=== PATIENT | male | born 1980 | race African-American/Black ===

== ENCOUNTER 2018-06-12 16:23 | Emergency (ER) | payer SELFPAY ==
[~2018-06-12] VITALS: Ht 175.3 cm; Wt 70.3 kg
[~2018-06-12 16:23] MED LIST: ACHD5005 PO; ALBU0.632 IH; ALBU8.5H2 IH; BUDE6HFA IH; LVF500T GT; PRD20T PO
--- OUTSIDE RECORDS SUMMARY | 2018-06-12 16:27 | XMS REPORT | Continuity of Care Document ---
Author Author [facility] Organization [facility] Address Unknown Phone Unavailable Allergies Active Description Code Type Severity Reaction Onset Reported/Identified Relationship to Patient Clinical Status Yes Penicillins [id number] Drug Allergy Unknown N/A 03/23/2015 Medications There is no data. Problems Date Dx Coded Attending Type Code Diagnosis Diagnosed By 03/25/2015 NIYAH JUNG MD Ot 305.1 TOBACCO USE DISORDER 03/25/2015 NIYAH JUNG MD Ot 590.80 PYELONEPHRITIS NOS 02/28/2016 SOLEDAD WILEY APRN Ot F17.210 NICOTINE DEPENDENCE, CIGARETTES, UNCOMPL 02/28/2016 SOLEDAD WILEY APRN Ot R07.0 PAIN IN THROAT 03/01/2016 SOLEDAD WILEY APRN Ot R07.0 PAIN IN THROAT 03/01/2016 SOLEDAD WILEY APRN Ot F17.210 NICOTINE DEPENDENCE, CIGARETTES, UNCOMPL 03/01/2016 SOLEDAD WILEY APRN Ot R07.0 PAIN IN THROAT 03/04/2016 SOLEDAD WILEY APRN Ot F17.210 NICOTINE DEPENDENCE, CIGARETTES, UNCOMPL 03/04/2016 SOLEDAD WILEY APRN Ot R07.0 PAIN IN THROAT Procedures There is no data. Results There is no data. Encounters ACCT No. Visit Date/Time Discharge Status Pt. Type Provider Facility Loc./Unit Complaint [id number] 02/27/2016 21:16:00 02/28/2016 00:40:00 DIS Outpatient SOLEDAD WILEY APRN [facility] ER [id number] 03/24/2015 00:08:00 03/25/2015 07:50:00 DIS Inpatient NIYAH JUNG MD [facility] SURGICAL
--- OUTSIDE RECORDS SUMMARY | 2018-06-12 16:27 | XMS REPORT ---
Author CHARLEY Maya Organization [employer] Address Unknown Phone Unavailable Care Team Providers Care Pack Worker Supervisor Name Role Phone CHARLEY PUENTE CP Unavailable Allergies No Known Allergies Problems Problem Type Condition ICD-9 Code Onset Dates Condition Status Problem Pyelonephritis 590.80 Active Assessment History of pyelonephritis V13.02 Active Problem Lumbago 724.2 Active Assessment Dysuria 788.1 Active Medications No Known Medications Procedures Procedure Coding System Code Date Office Visit, Est Pt., Level 2 CPT-4 08142 Jun 03, 2015 URINALYSIS, AUTO, W/O SCOPE CPT-4 42549 Jun 03, 2015 Results Name Result Date Reference Range Unit Abnormality Flag UA LONG DIP (IN HOUSE) Summary Purpose [employer] Submission
[2018-06-12] MEDS ORDERED: HYDROcodone/APAP 5 MG/325 MG (LORTAB) TAB PO ONE (17:00)
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
--- NOTE | 2018-06-12 17:59 | Diagnostic Imaging Report ---
INDICATION: Pain status post injury. COMPARISON: None. FINDINGS: Four views of the right knee joint demonstrate no acute fracture or dislocation. No focal osseous lesions are seen. There is moderate surrounding soft tissue swelling, particularly within the suprapatellar region. Underlying suprapatellar joint effusion cannot be excluded. There are no radiopaque foreign bodies. IMPRESSION: 1. Soft tissue swelling and possible suprapatellar joint effusion, but otherwise no radiographic evidence of acute fracture or dislocation of the right knee. If pain and clinical concern persist, cross-sectional imaging such as CT or MRI is recommended. Dictated by: Dictated on workstation # [id number]
[2018-06-12 18:55] VITALS: BP 126/82
== END 2018-06-12 18:58 | disposition home or self-care (01) ==
LOC: EDUNIT# 16:23 → ER 16:24
DX: S80.01XA Contusion of right knee, initial encounter (principal); J45.909 Unspecified asthma, uncomplicated; Z88.0 Allergy status to penicillin; W22.09XA Striking against other stationary object, initial encounter
CPT/HCPCS: 73562

== ENCOUNTER 2019-01-16 11:25 | Emergency (ER) | payer SELFPAY ==
[~2019-01-16] VITALS: Ht 175.3 cm; Wt 70.3 kg
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
[2019-01-16] MEDS ORDERED: TETANUS,DIPTH,PERTUSS P/F (BOOSTRIX) 0.5 ML VIAL IM ONE (12:00)
--- NOTE | 2019-01-16 12:17 | Diagnostic Imaging Report ---
INDICATION: Injury to right hand AP, oblique, and lateral views the right hand are obtained. There is a comminuted fracture of the distal aspect of fifth metacarpal with slight volar regulation of the distal fragment. Remaining bony structures are intact. There is no dislocation. IMPRESSION: Acute fifth metacarpal fracture as described above. Dictated by: Dictated on workstation # [id number]
[2019-01-16] MEDS ORDERED: ACETAMINOPHEN 325 MG TABLET PO ONE (12:30)
[2019-01-16 12:40] VITALS: BP 149/96
== END 2019-01-16 12:40 | disposition home or self-care (01) ==
LOC: EDUNIT# 11:25 → ER 11:26
DX: S62.346A Nondisplaced fracture of base of fifth metacarpal bone, right hand, initial encounter for closed fracture (principal); J45.909 Unspecified asthma, uncomplicated; F12.10 Cannabis abuse, uncomplicated; F17.210 Nicotine dependence, cigarettes, uncomplicated; Z23 Encounter for immunization; Z88.0 Allergy status to penicillin; Z90.89 Acquired absence of other organs; W22.09XA Striking against other stationary object, initial encounter
CPT/HCPCS: 73130; 90471; 90715

== ENCOUNTER 2021-08-04 12:35 | Emergency (ER) | payer SELFPAY ==
[~2021-08-04] VITALS: Ht 175.3 cm; Wt 70.0 kg
[2021-08-04 13:40] LABS: BILIRUBIN,URINE NEGATIVE (NEGATIVE); CLARITY,URINE CLEAR; COLOR,URINE YELLOW; GLUCOSE, URINE (UA) NEGATIVE (NEGATIVE); KETONES,URINE NEGATIVE (NEGATIVE); LEUKOCYTE ESTERASE ,URINE NEGATIVE (NEGATIVE); NITRITE,URINE NEGATIVE (NEGATIVE); PROTEIN,URINE NEGATIVE (NEGATIVE)
[2021-08-04 13:48] LABS: BACTERIA,URINE NEGATIVE /HPF; SQUAMOUS EPITHELIAL CELL,UR RARE /HPF; WBC,URINE RARE /HPF
--- NOTE | 2021-08-04 14:48 | Diagnostic Imaging Report ---
PROCEDURE: US Scrotum. TECHNIQUE: Multiple Real-time grayscale images were obtained over the scrotum in various projections bilaterally. INDICATION: Scrotal pain and swelling. FINDINGS: The right testicle measures 3.0 x 2.0 x 2.3 cm and the left testicle measures 3.7 x 2.2 x 2.0 cm. No discrete testicular mass is seen. There are very large hydroceles present, largest on the left and moderate on the right. No varicocele is seen. The epididymides could not be visualized. There does appear to be blood flow to both testes. IMPRESSION: 1. No evidence of testicular mass or vascular compromise. 2. Bilateral hydroceles, largest on the left. Dictated by: Dictated on workstation # [id number]
--- NOTE | 2021-08-04 15:08 | ED GU-Male ---
General Chief Complaint: - Reproductive Stated Complaint: SWOLLEN TESTICLES Nursing Triage Note: PT AMB TO RM 3 W REPORTS OF LEFT TESTICLE SWOLLEN FOR APPROX 3 WEEKS AND PAINFUL SX THIS AM. PT APPEARS TO WALK AND SIT W PAIN. A&OX4. Source: patient Exam Limitations: no limitations History of Present Illness Date Seen by Provider: Aug 04, 2021 Time Seen by Provider: 13:04 Initial Comments This 40-year-old gentleman presents to the emergency room with complaints of progressively worsening swelling of the scrotum over the last 3 weeks. He states his scrotum has always been larger but it has doubled in size over the last 3 weeks. This morning he was developing fairly intense pain. He denies any significant dysuria or penile discharge. He is sexually active. No fever. Allergies and Home Medications Allergies Coded Allergies: Penicillins (Unverified Allergy, Unknown, 03/23/15) Patient Home Medication List Home Medication List Reviewed: Yes Doxycycline Hyclate (Doxycycline Hyclate) 100 Mg Tablet, 100 MG PO BID Prescribed by: IBRAHIMA HERNÁNDEZ on 08/04/21 1517 Review of Systems Review of Systems Constitutional: no symptoms reported EENTM: no symptoms reported Respiratory: no symptoms reported Cardiovascular: no symptoms reported Gastrointestinal: no symptoms reported Genitourinary: see HPI Musculoskeletal: no symptoms reported Skin: no symptoms reported Psychiatric/Neurological: No Symptoms Reported Endocrine: No Symptoms Reported Past Wseguna-Qquexp-Uqcxxc Hx Patient Social History Tobacco Use?: Yes Tobacco type used: Cigarettes Smoking Status: Current Everyday Smoker Use of E-Cig and/or Vaping dev: No Substance use?: Yes Substance type: Marijuana, Other Additional substance use comme: THC AND COCAINE USE Alcohol Use?: Yes Pt feels they are or have been: No Immunizations Up To Date Tetanus Booster (TDap): Less than 5yrs PED Vaccines UTD: No Influenza Vaccine Up-to-Date: No; Not Current Seasonal Allergies Seasonal Allergies: No Past Medical History Surgeries: Yes (HEMOROIDECTOMY) Respiratory: Yes Asthma Cardiac: No Neurological: No Reproductive Disorders: No Sexually Transmitted Disease: No Gastrointestinal: No Musculoskeletal: Yes Chronic Back Pain Endocrine: No Cancer: No Psychosocial: No Integumentary: No Blood Disorders: No Adverse Reaction/Blood Tranf: No Family Medical History No Pertinent Family Hx Physical Exam Vital Signs Vital Signs - First Documented 08/04/21 13:30 Temp 36.1 Pulse 78 Resp 20 B/P (MAP) 130/85 (100) Pulse Ox 100 O2 Delivery Room Air Capillary Refill : Less Than 3 Seconds Height, Weight, BMI Height: 5'9.00" Weight: 155lbs. oz. 70.867023qu; 22.00 BMI Method:Stated General Appearance: WD/WN, mild distress HEENT: normal ENT inspection Neck: normal inspection Respiratory: no respiratory distress, no accessory muscle use Gastrointestinal: normal bowel sounds, non tender, soft; No distended Male: other (Penis is normal with no discharge or skin changes. Scrotum is markedly swollen without any erythema or inflammatory changes. There is mild to moderate generalized tenderness. Testicles cannot be palpated due to the swelling. Inguinal canals are moderately tender without evidence of hernia, left greater than right) Extremities: normal inspection, no pedal edema Neurologic/Psychiatric: consulting practice director II-XII nml as tested, no motor/sensory deficits, alert, normal mood/affect, oriented x 3 Skin: normal color, warm/dry Progress/Results/Core Measures Suspected Sepsis SIRS Temperature: Pulse: 78 Respiratory Rate: 20 Blood Pressure 130 /85 Mean: 100 Results/Orders Lab Results Laboratory Tests Test 08/04/21 13:32 Range/Units Urine Color YELLOW Urine Clarity CLEAR Urine pH 6.0 5-9 Urine Specific [place] 1.025 H 1.016-1.022 Urine Protein NEGATIVE NEGATIVE Urine Glucose (UA) NEGATIVE NEGATIVE Urine Ketones NEGATIVE NEGATIVE Urine Nitrite NEGATIVE NEGATIVE Urine Bilirubin NEGATIVE NEGATIVE Urine Urobilinogen 1.0 < = 1.0 MG/DL Urine Leukocyte Esterase NEGATIVE NEGATIVE Urine RBC (Auto) NEGATIVE NEGATIVE Urine RBC NONE /HPF Urine WBC RARE /HPF Urine Squamous Epithelial Cells RARE /HPF Urine Crystals NONE /LPF Urine Bacteria NEGATIVE /HPF Urine Casts NONE /LPF Urine Mucus SMALL H /LPF Urine Culture Indicated NO My Orders Orders - IBRAHIMA ACOSTA MD Ua Culture If Indicated (08/04/21 13:04) Us Scrotum (Testicle) [id number] (08/04/21 13:47) Chlamydia Trachomatis Urine (08/04/21 15:09) Neis Geoff Dna Urine Test (08/04/21 15:09) Vital Signs/I&O 08/04/21 08/04/21 13:30 15:22 Temp 36.1 Pulse 78 73 Resp 20 20 B/P (MAP) 130/85 (100) 140/88 Pulse Ox 100 99 O2 Delivery Room Air Room Air Capillary Refill : Less Than 3 Seconds Blood Pressure Mean: 100 Progress Note : Progress Note Patient declined pain medication. Ultrasound revealed no torsion, masses, or inflammatory processes. Presence of hydrocele discussed with Dr. Wu. Outpatient referral and empiric antibiotic therapy were recommended. Doxycycline was prescribed. See discharge instructions. Diagnostic Imaging Diagonstic Imaging: Ultrasound Plain Films/CT/US/NM/MRI: other (Scrotum) Comments Ultrasound discussed with heat treatment technician and report reviewed. See report below: NAME: PHIL CARRILLO [facility] REC#: [id number] PT STATUS: REG ER : 1980 PHYSICIAN: IBRAHIMA ACOSTA MD ADMIT DATE: 08/04/21/ER Draft Date of Exam:08/04/21 US SCROTUM (Testicle) [id number] PROCEDURE: US Scrotum. TECHNIQUE: Multiple Real-time grayscale images were obtained over the scrotum in various projections bilaterally. INDICATION: Scrotal pain and swelling. FINDINGS: The right testicle measures 3.0 x 2.0 x 2.3 cm and the left testicle measures 3.7 x 2.2 x 2.0 cm. No discrete testicular mass is seen. There are very large hydroceles present, largest on the left and moderate on the right. No varicocele is seen. The epididymides could not be visualized. There does appear to be blood flow to both testes. IMPRESSION: 1. No evidence of testicular mass or vascular compromise. 2. Bilateral hydroceles, largest on the left. Dictated on workstation # [id number] Dict: 08/04/21 1443 Trans: 08/04/21 1448 [id number] Interpreted by: GABY BISHOP MD Departure Impression Primary Impression: Bilateral hydrocele Additional Impression: Scrotal pain Disposition: 01 HOME, SELF-CARE Condition: Stable Departure-Patient Inst. Decision time for Depature: 15:11 Referrals: NO,LOCAL PHYSICIAN (PCP) Primary Care Physician MOMO WU MD Patient Instructions: Hydrocele/Varicocele (DC) Add. Discharge Instructions: You may take ibuprofen up to 600 mg every 6 hours and/or Tylenol (acetaminophen) up to 1000 mg every 6 hours as needed for pain. Wear supportive underwear. Contact Dr. Wu and schedule a follow-up appointment. Since you are uncertain of your insurance status at this time, you should complete the patient financial coordinator paperwork with the hospital. Papers can be picked up from the registration desk. Complete your antibiotic as prescribed. Return to care if you have worsening symptoms. Call with questions or concerns. All discharge instructions reviewed with patient and/or family. Voiced understanding. Scripts Doxycycline Hyclate (Doxycycline Hyclate) 100 Mg Tablet 100 MG PO BID, #20 TAB 0 Refills Prov: IBRAHIMA ACOSTA MD 08/04/21 Work/School Note: Work Release Form Date Seen in the Emergency Department: Aug 04, 2021 Return to Work: Aug 04, 2021 Other Restrictions Listed Below: Light duty until released. No lifting over 15 lbs or strenuous activity. Copy Copies To 1: MOMO WU MD, JOSHUA T MD Aug 04, 2021 15:08
[2021-08-04] MEDS ORDERED: DOXY100T2 PO ×2 (15:14→15:17)
[2021-08-04 15:22] VITALS: BP 140/88
== END 2021-08-04 15:22 | disposition home or self-care (01) ==
LOC: EDUNIT# 12:35 → ER 12:41
DX: N43.3 Hydrocele, unspecified (principal); N50.82 Scrotal pain; J45.909 Unspecified asthma, uncomplicated; F17.210 Nicotine dependence, cigarettes, uncomplicated
CPT/HCPCS: 36415; 76870; 81000; 87491; 87591

== ENCOUNTER 2021-11-02 17:33 | Emergency (ER) | payer BC ==
[~2021-11-02] VITALS: Ht 175 cm; Wt 68.0 kg
[~2021-11-02 17:33] MED LIST changes: +DOXY100T2 PO
[2021-11-02] MEDS ORDERED: CLINDAMYCIN 150 MG (CLEOCIN) CAP PO STA (17:46)
--- NOTE | 2021-11-02 17:51 | ED EENT ---
History of Present Illness General Stated Complaint: DENTAL PAIN - SOA Source: patient Exam Limitations: no limitations History of Present Illness Date Seen by Provider: Nov 02, 2021 Time Seen by Provider: 17:48 Initial Comments Patient is a 40-year-old male presents ED with right lower dental pain. Patient states he has pain to his right lower molar. He states he needs his molar removed. Pain started 24 hours ago. Sharp shooting pain to the right jaw. Similar pain in the past. Reports gum swelling and redness without any drainage. States he does not feel well. Also reports short of breath. Has been using inhaler without much improvement. No wheezing. History of asthma. Denies of any fever, chills, nausea, vomiting, diarrhea, abdominal pain, chest pain Allergies and Home Medications Allergies Coded Allergies: Penicillins (Unverified Allergy, Unknown, 03/23/15) Patient Home Medication List Home Medication List Reviewed: Yes Clindamycin HCl (Clindamycin HCl) 300 Mg Capsule, 300 MG PO QID Prescribed by: RICHARD WEBSTER on 11/02/21 184 Doxycycline Hyclate (Doxycycline Hyclate) 100 Mg Tablet, 100 MG PO BID Prescribed by: IBRAHIMA HERNÁNDEZ on 08/04/21 1517 Hydrocodone/Acetaminophen (Hydrocodone-Acetamin 5-325 mg) 1 Each Tablet, 1 TAB PO Q4H PRN for PAIN-MODERATE (5-7) Prescribed by: RICHARD WEBSTER on 11/02/211845 [do] Prescribed by: RICHARD WEBSTER on 11/02/21 184 Review of Systems Review of Systems Constitutional: No chills, No diaphoresis, No fever, No malaise, No weakness Eyes: Denies Blindness, Denies Inflammation, Denies Pain Ears: Denies Dizziness, Denies Pain Nose: denies congestion Mouth: denies clots; pain; denies swelling Throat: denies swelling, denies neck stiffness, denies previous injury Respiratory: No cough; short of breath; No stridor, No wheezing Gastrointestinal: No abdominal pain, No diarrhea, No nausea, No vomiting Musculoskeletal: No back pain, No joint pain Skin: No change in color, No change in hair/nails All Other Systems Reviewed Negative Unless Noted: Yes Past Ngqjjmk-Pcyxgg-Vjqfie Hx Immunizations Up To Date Tetanus Booster (TDap): Less than 5yrs PED Vaccines UTD: No Seasonal Allergies Seasonal Allergies: No Past Medical History Surgeries: Yes (HEMOROIDECTOMY) Respiratory: Yes Asthma Cardiac: No Neurological: No Reproductive Disorders: No Sexually Transmitted Disease: No Gastrointestinal: No Musculoskeletal: Yes Chronic Back Pain Endocrine: No Cancer: No Psychosocial: No Integumentary: No Blood Disorders: No Adverse Reaction/Blood Tranf: No Family Medical History No Pertinent Family Hx Physical Exam Vital Signs Vital Signs - First Documented 11/02/21 17:45 Temp 36.2 Pulse 89 Resp 17 B/P (MAP) 147/90 (109) Pulse Ox 99 O2 Delivery Room Air Height, Weight, BMI Height: 5'9.00" Weight: 155lbs. oz. 70.729014ig; 22.00 BMI Method:Stated General Appearance: WD/WN, no apparent distress Eyes: bilateral eye normal inspection, bilateral eye PERRL, bilateral eye EOMI Ears: bilateral ear auricle normal, bilateral ear canal normal, bilateral ear TM normal Nose: normal inspection Mouth/Throat: No normal mouth inspection, No pharynx normal; dental tenderness; No tonsillar swelling, No trismus Neck: non-tender, full range of motion, supple Cardiovascular: regular rate, rhythm, no edema, no gallop, no JVD Respiratory: chest non-tender, lungs clear, normal breath sounds, no respiratory distress, no accessory muscle use Gastrointestinal: normal bowel sounds, non tender, soft, no organomegaly Skin: normal color, warm/dry Progress/Results/Core Measures Results/Orders My Orders Orders - ZEKE KENNY Chest Pa/Lat (2 View) (11/02/21 17:46) Clindamycin Capsule (Cleocin Capsule) (11/02/21 17:46) Hydrocodone/Apap 5/325 Tablet (Lortab 5 (11/02/21 19:00) Medications Given in ED Current Medications Medications Dose Ordered Sig/Gwen Route Start Time Stop Time Status Last Admin Dose Admin Acetaminophen/ Hydrocodone Bitart 1 ea ONCE ONCE PO 11/02/21 19:00 11/02/21 18:59 DC 11/02/21 18:52 1 EA Vital Signs/I&O 11/02/21 11/02/21 17:45 18:58 Temp 36.2 36.2 Pulse 89 89 Resp 17 17 B/P (MAP) 147/90 (109) 147/90 Pulse Ox 99 99 O2 Delivery Room Air Room Air Departure Communication (Admissions) Patient with right lower molar tenderness. Gum swelling erythema. No fluctuant mass. Tooth needs to be extracted. This has been ongoing. No facial swelling or erythema. Was given dose of pain medication. States he feels short of breath today. Chest x-ray negative for pneumonia, pneumothorax. No body aches, chills, fever, vomiting, diarrhea cough. States he had flulike symptoms 2 weeks ago which has improved. Patient has been on clindamycin in the past. Discharged with clindamycin. And pain medication. Will need to follow-up with a oral maxillofacial surgeon. Recommend dental follow-up as well. Return precaution were discussed. Impression Primary Impression: Pain, dental Disposition: 01 HOME, SELF-CARE Condition: Stable Departure-Patient Inst. Decision time for Depature: 18:44 Referrals: NO,LOCAL PHYSICIAN (PCP/Family) Primary Care Physician Patient Instructions: Dental Pain Scripts Hydrocodone/Acetaminophen (Hydrocodone-Acetamin 5-325 mg) 1 Each Tablet 1 TAB PO Q4H PRN for PAIN-MODERATE (5-7), #8 TAB Prov: ZEKE KENNY 11/02/21 [do] No Conflict Check Prov: ZEKE KENNY 11/02/21 Clindamycin HCl (Clindamycin HCl) 300 Mg Capsule 300 MG PO QID for 7 Days, #28 CAP Prov: ZEKE KENNY 11/02/21 ZEKE KENNY Nov 02, 2021 17:51
[2021-11-02] MEDS ORDERED: ACHD5005 PO (18:45)
[2021-11-02] MEDS ORDERED: [UNRECOGNIZED DRUG - OTHER] (18:45)
[2021-11-02] MEDS ORDERED: CLIN-144 PO (18:45)
--- NOTE | 2021-11-02 18:52 | Diagnostic Imaging Report ---
INDICATION: Dental pain. Increased use of inhaler with shortness of breath and cough. EXAMINATION: Three-view chest from 11/02/2021. FINDINGS: The cardiomediastinal silhouette is unremarkable. The pulmonary vasculature is within normal limits. The lungs and pleural spaces are clear. IMPRESSION: No evidence of an acute cardiopulmonary process. Dictated by: Dictated on workstation # [id number]
[2021-11-02 18:58] VITALS: BP 147/90
[2021-11-02] MEDS ORDERED: HYDROcodone/APAP 5 MG/325 MG (LORTAB) TAB PO ONE (19:00)
== END 2021-11-02 18:58 | disposition home or self-care (01) ==
LOC: EDUNIT# 17:33 → ER 17:35
DX: K08.89 Other specified disorders of teeth and supporting structures (principal); J45.909 Unspecified asthma, uncomplicated
CPT/HCPCS: 71046; 99283

== ENCOUNTER 2021-12-27 20:43 | Emergency (ER) | payer SELFPAY ==
[~2021-12-27] VITALS: Ht 175 cm; Wt 72.0 kg
[~2021-12-27 20:43] MED LIST changes: +CLIN-144 PO; +[UNRECOGNIZED DRUG - OTHER]
[2021-12-27 21:54] LABS: BILIRUBIN,URINE NEGATIVE (NEGATIVE); CLARITY,URINE CLEAR; COLOR,URINE YELLOW; GLUCOSE, URINE (UA) NEGATIVE (NEGATIVE); KETONES,URINE NEGATIVE (NEGATIVE); LEUKOCYTE ESTERASE ,URINE NEGATIVE (NEGATIVE); NITRITE,URINE NEGATIVE (NEGATIVE); PROTEIN,URINE NEGATIVE (NEGATIVE)
[2021-12-27 21:58] LABS: BASOPHILS % (AUTO) 1 % (0-10); EOSINOPHILS # (AUTO) 0.2 10^3/uL (0.0-0.3); EOSINOPHILS % (AUTO) 4 % (0-10); HEMATOCRIT 44 % (40-54); LYMPHOCYTES # (AUTO) 2.3 10^3/uL (1.0-4.0); LYMPHOCYTES % (AUTO) 47 % (12-44); MEAN CORPUSCULAR HEMOGLOBIN 27 pg (25-34); MEAN CORPUSCULAR HGB CONC 32 g/dL (32-36); MEAN CORPUSCULAR VOLUME 86 fL (80-99); MONOCYTES # (AUTO) 0.4 10^3/uL (0.0-1.0); MONOCYTES % (AUTO) 9 % (0-12); NEUTROPHILS # (AUTO) 1.9 10^3/uL (1.8-7.8); NEUTROPHILS % (AUTO) 39 % (42-75); PLATELET COUNT 196 10^3/uL (130-400); WHITE BLOOD COUNT 4.8 10^3/uL (4.3-11.0)
[2021-12-27 22:03] LABS: BACTERIA,URINE TRACE /HPF; HYALINE CASTS, URINE RARE /LPF; SQUAMOUS EPITHELIAL CELL,UR RARE /HPF; WBC,URINE RARE /HPF
[2021-12-27 22:05] LABS: AMPHETAMINE SCREEN, URINE NEGATIVE (NEGATIVE); BARBITURATE SCREEN URINE NEGATIVE (NEGATIVE); BENZODIAZEPINES SCREEN URINE NEGATIVE (NEGATIVE); CANNABINOID SCREEN, URINE POSITIVE (NEGATIVE); COCAINE SCREEN URINE NEGATIVE (NEGATIVE); METHADONE STAT NEGATIVE (NEGATIVE); METHAMPHETAMINE SCREEN URINE S NEGATIVE (NEGATIVE); OPIATE SCREEN URINE NEGATIVE (NEGATIVE); OXYCODONE STAT NEGATIVE (NEGATIVE); PROPOXYPHENE STAT NEGATIVE (NEGATIVE); TRICYCLIC ANTIDEPRESSANTS SCRE NEGATIVE (NEGATIVE)
--- NOTE | 2021-12-27 22:12 | ED GU-Male ---
General Chief Complaint: General Problems/Pain Stated Complaint: BILAT TESTICLE SWELLING Nursing Triage Note: PT REPORTS TO ED FOR TESTICULAR PAIN X'S 3 DAYS. REPORTS TESTICALS ARE SWOLLEN AND HARD. PAIN HAS BEEN INCREASING. NO DIFFICULTY URINATING AT THIS TIME. PT AMB. TO TRIAGE WITHOUT DIFFICULTY. Source: patient History of Present Illness Date Seen by Provider: Dec 27, 2021 Time Seen by Provider: 21:38 Initial Comments PT ARRIVES VIA POV FROM HOME C/O BILATERAL TESTICULAR PAIN AND SWELLING X 2-3 DAYS--PAIN IS WORSE ON LEFT STATES HE HAS HAD SOME ONGOING MILD SWELLING TO TESTICLES--LEFT > RIGHT, AND NORMALLY DOES NOT HAVE PAIN, AND NORMALLY TESTICLES/SCROTUM IS SOFT HAS HAD SIGNIFICANT INCREASE IN SWELLING BILATERALLY, AND HAVING SEVERE PAIN AND SCROTUM IS VERY HARD HAVING MUCH DIFFICULTY WALKING DUE TO PAIN AND SWELLING ALSO HAVING MUCH DIFFICULTY URINATING PAIN RADIATES TO LEFT GROIN AREA AND SUPRAPUBIC AREA NO BACK PAIN NO FEVER OR RECENT ILLNESS NO NAUSEA/VOMITING NO PENILE DISCHARGE 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 MISSED WORK LAST NIGHT, AND IS SUPPOSED TO BE AT WORK AT MIDNIGHT TONIGHT PT HAD REPORTED TO ME THAT HE HAD NO HISTORY OF SIMILAR, BUT ON REVIEW OF OLD RECORDS, PT WAS SEEN HERE 07/2021 FOR SAME, DX WITH HYDROCOELE AND REFERRED TO DR. WU, PT DID NOT FOLLOW UP WITH ANYONE. STATES HE HAD AN STD A LONG TIME AGO, BUT DOES NOT RECALL WHAT STD HE HAD. HAS ASTHMA, NO OTHER CHRONIC ILLNESSES PCP: [facility] Allergies and Home Medications Allergies Coded Allergies: Penicillins (Unverified Allergy, Unknown, 03/23/15) Patient Home Medication List Home Medication List Reviewed: Yes Clindamycin HCl (Clindamycin HCl) 300 Mg Capsule, 300 MG PO QID Prescribed by: RICHARD WEBSTER on 11/02/21 1845 Doxycycline Hyclate (Doxycycline Hyclate) 100 Mg Tablet, 100 MG PO BID Prescribed by: IBRAHIMA HERNÁNDEZ on 08/04/21 1517 Doxycycline Hyclate (Doxycycline Hyclate) 100 Mg Tablet, 100 MG PO BID Prescribed by: LISA MURGUIA on 12/27/21 8351 Hydrocodone/Acetaminophen (Hydrocodone-Acetamin 5-325 mg) 1 Each Tablet, 1 TAB PO Q4H PRN for PAIN-MODERATE (5-7) Prescribed by: RICHARD WEBSTER on 11/02/21 678 Ketorolac Tromethamine (Ketorolac Tromethamine) 10 Mg Tablet, 10 MG PO Q6H Prescribed by: LISA MURGUIA on 12/27/21 2680 [do] Prescribed by: RICHARD WEBSTER on 11/02/211844 Review of Systems Review of Systems Constitutional: no symptoms reported Respiratory: no symptoms reported Cardiovascular: no symptoms reported Gastrointestinal: see HPI Genitourinary: see HPI Musculoskeletal: no symptoms reported Skin: no symptoms reported Psychiatric/Neurological: No Symptoms Reported Endocrine: No Symptoms Reported Past Jcsjomj-Gmawvk-Tzmxgj Hx Patient Social History Tobacco Use?: Yes (1 PPD) Tobacco type used: Cigarettes Smoking Status: Current Everyday Smoker Use of E-Cig and/or Vaping dev: No Substance use?: Yes Substance type: Marijuana Substance frequency: Daily Alcohol Use?: Yes Alcohol Frequency: Once in a while Pt feels they are or have been: No Immunizations Up To Date Tetanus Booster (TDap): Less than 5yrs PED Vaccines UTD: No Seasonal Allergies Seasonal Allergies: No Past Medical History Surgery/Hospitalization HX: PMH;ASTHMA. SURGERY;DENIES. Surgeries: Yes (HEMOROIDECTOMY) Rectal Respiratory: Yes Asthma Cardiac: No Neurological: No Reproductive Disorders: No Sexually Transmitted Disease: No Genitourinary: No Gastrointestinal: Yes Hemorrhoids Musculoskeletal: Yes Chronic Back Pain Endocrine: No HEENT: No Cancer: No Psychosocial: No Integumentary: No Blood Disorders: No Adverse Reaction/Blood Tranf: No Family Medical History No Pertinent Family Hx Physical Exam Vital Signs Vital Signs - First Documented 12/27/21 12/27/21 21:00 23:49 Temp 36.9 Pulse 72 Resp 18 B/P (MAP) 122/82 (95) Pulse Ox 99 O2 Delivery Room Air Capillary Refill : Less Than 3 Seconds Height, Weight, BMI Height: 5'9.00" Weight: 155lbs. oz. 70.305773cl; 23.00 BMI Method:Stated General Appearance: WD/WN, no apparent distress, other (WALKS VERY SLOWLY WITH WIDE STANCE) Cardiovascular: regular rate, rhythm, no murmur Respiratory: normal breath sounds Gastrointestinal: soft, tenderness (MILD SUPRAPUBIC AND LEFT > RIGHT INGUINAL TENDERNESS) Male: no hernia; No erythema; inguinal tenderness, other (PENIS APPEARS NORMAL; TESTICLES/SCROTUM MASSIVELY SWOLLEN AND DIFFUSELY TENDER AND VERY FIRM. TEN DERNESS LEFT > RIGHT. UNABLE TO ACTUALLY PALPATE TESTICLES DUE TO SWELLING. NO INGUINAL ADENOPATHY OR SWELLING. NO LESIONS/ULCERS/SORES, ETC. NO ERYTHEMA) Back: no CVA tenderness Extremities: normal inspection Neurologic/Psychiatric: no motor/sensory deficits, alert, normal mood/affect Skin: normal color (PT IS BLACK), warm/dry Progress/Results/Core Measures Suspected Sepsis SIRS Temperature: Pulse: Respiratory Rate: 18 Laboratory Tests 12/27/21 21:50: White Blood Count 4.8 Blood Pressure 122 /82 Mean: 95 Laboratory Tests 12/27/21 21:50: Creatinine 0.92, Platelet Count 196, Total Bilirubin 0.3 Results/Orders Lab Results Laboratory Tests Test 12/27/21 21:46 12/27/21 21:50 Range/Units Urine Color YELLOW Urine Clarity CLEAR Urine pH 6.0 5-9 Urine Specific [place] 1.025 H 1.016-1.022 Urine Protein NEGATIVE NEGATIVE Urine Glucose (UA) NEGATIVE NEGATIVE Urine Ketones NEGATIVE NEGATIVE Urine Nitrite NEGATIVE NEGATIVE Urine Bilirubin NEGATIVE NEGATIVE Urine Urobilinogen 0.2 < = 1.0 MG/DL Urine Leukocyte Esterase NEGATIVE NEGATIVE Urine RBC (Auto) NEGATIVE NEGATIVE Urine RBC NONE /HPF Urine WBC RARE /HPF Urine Squamous Epithelial Cells RARE /HPF Urine Crystals NONE /LPF Urine Bacteria TRACE /HPF Urine Casts PRESENT /LPF Urine Hyaline Casts RARE /LPF Urine Mucus SMALL H /LPF Urine Culture Indicated NO Urine Opiates Screen NEGATIVE NEGATIVE Urine Oxycodone Screen NEGATIVE NEGATIVE Urine Methadone Screen NEGATIVE NEGATIVE Urine Propoxyphene Screen NEGATIVE NEGATIVE Urine Barbiturates Screen NEGATIVE NEGATIVE Ur Tricyclic Antidepressants Screen NEGATIVE NEGATIVE Urine Phencyclidine Screen NEGATIVE NEGATIVE Urine Amphetamines Screen NEGATIVE NEGATIVE Urine Methamphetamines Screen NEGATIVE NEGATIVE Urine Benzodiazepines Screen NEGATIVE NEGATIVE Urine Cocaine Screen NEGATIVE NEGATIVE Urine Cannabinoids Screen POSITIVE H NEGATIVE White Blood Count 4.8 4.3-11.0 10^3/uL Red Blood Count 5.16 4.30-5.52 10^6/uL Hemoglobin 14.0 13.3-17.7 g/dL Hematocrit 44 40-54 % Mean Corpuscular Volume 86 80-99 fL Mean Corpuscular Hemoglobin 27 25-34 pg Mean Corpuscular Hemoglobin Concent 32 32-36 g/dL Red Cell Distribution Width 13.9 10.0-14.5 % Platelet Count 196 130-400 10^3/uL Mean Platelet Volume 11.0 9.0-12.2 fL Immature Granulocyte % (Auto) 0 % Neutrophils (%) (Auto) 39 L 42-75 % Lymphocytes (%) (Auto) 47 H 12-44 % Monocytes (%) (Auto) 9 0-12 % Eosinophils (%) (Auto) 4 0-10 % Basophils (%) (Auto) 1 0-10 % Neutrophils # (Auto) 1.9 1.8-7.8 10^3/uL Lymphocytes # (Auto) 2.3 1.0-4.0 10^3/uL Monocytes # (Auto) 0.4 0.0-1.0 10^3/uL Eosinophils # (Auto) 0.2 0.0-0.3 10^3/uL Basophils # (Auto) 0.0 0.0-0.1 10^3/uL Immature Granulocyte # (Auto) 0.0 0.0-0.1 10^3/uL Erythrocyte Sedimentation Rate 5 0-15 MM/HR Sodium Level 144 135-145 MMOL/L Potassium Level 3.7 3.6-5.0 MMOL/L Chloride Level 108 H 98-107 MMOL/L Carbon Dioxide Level 24 21-32 MMOL/L Anion Gap 12 5-14 MMOL/L Blood Urea Nitrogen 14 7-18 MG/DL Creatinine 0.92 0.60-1.30 MG/DL Estimat Glomerular Filtration Rate 109 BUN/Creatinine Ratio 15 Glucose Level 71 70-105 MG/DL Calcium Level 9.4 8.5-10.1 MG/DL Corrected Calcium 9.4 8.5-10.1 MG/DL Total Bilirubin 0.3 0.1-1.0 MG/DL Aspartate Amino Transf (AST/SGOT) 13 5-34 U/L Alanine Aminotransferase (ALT/SGPT) 11 0-55 U/L Alkaline Phosphatase 97 40-136 U/L C-Reactive Protein High Sensitivity 0.06 0.00-0.50 MG/DL Total Protein 6.7 6.4-8.2 GM/DL Albumin 4.0 3.2-4.5 GM/DL My Orders Orders - LISA MURGUIA DO Drug Screen Stat (Urine) (12/27/21 21:45) Ua Culture If Indicated (12/27/21 21:45) Cbc With Automated Diff (12/27/21 21:45) Comprehensive Metabolic Panel (12/27/21 21:45) Hs C Reactive Protein (12/27/21 21:45) Erythrocyte Sedimentation Rate (12/27/21 21:45) Ed Iv/Invasive Line Start (12/27/21 21:45) Neis Geoff Dna Urine Test (12/27/21 21:45) Chlamydia Trachomatis Urine (12/27/21 21:45) Wet Prep (12/27/21 21:45) Us Scrotum (Testicle) [id number] (12/27/21 22:03) Ed Iv/Invasive Line Start (12/27/21 22:04) Ns Iv 1000 Ml (Sodium Chloride 0.9%) (12/27/21 22:15) Ketorolac Injection (Toradol Injection) (12/27/21 22:15) Ceftriaxone 1 Gm Pre-Mix (Rocephin 1 Gm (12/27/21 23:00) Azithromycin Tablet (Zithromax Tablet) (12/27/21 23:00) Medications Given in ED Current Medications Medications Dose Ordered Sig/Gwen Route Start Time Stop Time Status Last Admin Dose Admin Azithromycin 1,000 mg ONCE ONCE PO 12/27/21 23:00 12/27/21 23:02 DC 12/27/21 23:10 1,000 MG Ceftriaxone Sodium/Dextrose 50 ml @ 100 mls/hr ONCE ONCE IV 12/27/21 23:00 12/27/21 23:29 DC 12/27/21 23:10 100 MLS/HR Ketorolac Tromethamine 30 mg ONCE ONCE IVP 12/27/21 22:15 12/27/21 22:16 DC 12/27/21 22:10 30 MG Vital Signs/I&O 12/27/21 12/27/21 21:00 23:49 Temp 36.9 36.9 Pulse 72 Resp 18 18 B/P (MAP) 122/82 (95) 139/97 Pulse Ox 99 99 O2 Delivery Room Air Room Air Capillary Refill : Less Than 3 Seconds Blood Pressure Mean: 95 Progress Note : Progress Note UNEVENTFUL ER STAY STRESSED THE IMPORTANCE OF FOLLOW UP WITH DR. WU/ UROLOGIST FOR FURTHER CARE. ADVISED THAT SURGERY MAY BE NECESSARY AT SOME POINT, SYMPTOMS HAVE WORSENED OVER TIME. Diagnostic Imaging Comments SCROTAL ULTRASOUND--BILATERAL HYDROCOELES, NO TORSION, NO EVIDENCE OF HERNIA. PER TECH REPORT AT 2255 PER RADIOLOGIST REPORT AT 2311 FINDINGS: The right testicle measures 3.5 x 2.7 x 1.9 cm. The left testicle measures 3.8 x 2.2 x 2.1 cm. Both testis are normal in echogenicity. No mass is seen. There are large bilateral hydroceles. There is no varicocele. Epididymides are not seen. Duplex images reveal normal arterial inflow to both testis. IMPRESSION: Large bilateral hydroceles. No evidence of torsion. Reviewed: Reviewed by Me Departure Impression Primary Impression: Bilateral hydrocele Disposition: HOME, SELF-CARE Condition: Stable Departure-Patient Inst. Decision time for Depature: 22:58 Referrals: MOMO WU MD [facility] [place] Patient Instructions: Hydrocele Add. Discharge Instructions: TYLENOL NEEDED FOR PAIN FOLLOW UP WITH DR. WU, UROLOGIST, THIS WEEK FOR FURTHER CARE--CALL IN THE MORNING TO SCHEDULE APPOINTMENT All discharge instructions reviewed with patient and/or family. Voiced understanding. Scripts Ketorolac Tromethamine (Ketorolac Tromethamine) 10 Mg Tablet 10 MG PO Q6H for Pain, #15 TAB Prov: LISA MURGUIA DO 12/27/21 Doxycycline Hyclate (Doxycycline Hyclate) 100 Mg Tablet 100 MG PO BID, #20 TAB 0 Refills Prov: LISA MURGUIA DO 12/27/21 Work/School Note: Work Release Form Date Seen in the Emergency Department: Dec 27, 2021 Return to Work: Dec 29, 2021 Restrictions: No Restrictions LISA MURGUIA DO Dec 27, 2021 22:12
[2021-12-27 22:15] LABS: POTASSIUM 3.7 MMOL/L (3.6-5.0)
[2021-12-27] MEDS ORDERED: KETOROLAC 30 MG/ML VIAL IVP ONE (22:15)
[2021-12-27] MEDS ORDERED: NS IV 1000 ML 1,000 ML IV SCH (22:15)
[2021-12-27 22:16] LABS: CALCIUM 9.4 MG/DL (8.5-10.1)
[2021-12-27 22:17] LABS: TOTAL PROTEIN 6.7 GM/DL (6.4-8.2)
[2021-12-27 22:19] LABS: BILIRUBIN,TOTAL 0.3 MG/DL (0.1-1.0)
[2021-12-27 22:21] LABS: CREATININE SERUM 0.92 MG/DL (0.60-1.30); ERYTHROCYTE SEDIMENTATION RATE 5 MM/HR (0-15)
[2021-12-27] MEDS ORDERED: DOXY100T2 PO (22:59)
[2021-12-27] MEDS ORDERED: KETO10TA PO (22:59)
[2021-12-27] MEDS ORDERED: cefTRIAXone 1 GM PRE-MIX 50 ML IV ONE (23:00)
[2021-12-27] MEDS ORDERED: AZITHROMYCIN 250 MG TAB (ZITHROMAX) PO ONE (23:00)
--- NOTE | 2021-12-27 23:01 | Diagnostic Imaging Report ---
EXAMINATION: US scrotum w/duplex. TECHNIQUE: Multiple realtime mcbride images were obtained of the scrotum in various projections bilaterally. Color Doppler images were also obtained. HISTORY: Testicular pain and swelling. COMPARISON: None available. FINDINGS: The right testicle measures 3.5 x 2.7 x 1.9 cm. The left testicle measures 3.8 x 2.2 x 2.1 cm. Both testis are normal in echogenicity. No mass is seen. There are large bilateral hydroceles. There is no varicocele. Epididymides are not seen. Duplex images reveal normal arterial inflow to both testis. IMPRESSION: Large bilateral hydroceles. No evidence of torsion. Dictated by: Dictated on workstation # [id number]
[2021-12-27 23:49] VITALS: BP 139/97
== END 2021-12-27 23:55 | disposition home or self-care (01) ==
LOC: EDUNIT# 20:43 → ER 20:44
DX: N43.3 Hydrocele, unspecified (principal); F17.210 Nicotine dependence, cigarettes, uncomplicated
CPT/HCPCS: 36415; 76870; 80053; 80306; 81000; 85025; 85652; 86141; 87491; 87591

== ENCOUNTER 2022-01-05 09:01 | Emergency (ER) | payer SELFPAY ==
[~2022-01-05] VITALS: Ht 175 cm; Wt 70.0 kg
[~2022-01-05 09:01] MED LIST changes: +KETO10TA PO
[2022-01-05] MEDS ORDERED: LIDOCAINE 1% INJ 20 ML VIAL INJ ONE (10:30)
[2022-01-05] MEDS ORDERED: fentaNYL INJ 100 MCG/2 ML AMP IVP ONE (10:30)
[2022-01-05] MEDS ORDERED: BUPIVACAINE 0.5% 30 ML (SENSORCAINE) VIAL INJ ONE (10:30)
[2022-01-05] MEDS ORDERED: KETOROLAC 30 MG/ML VIAL IVP ONE (10:30)
[2022-01-05 10:44] LABS: BASOPHILS % (AUTO) 1 % (0-10); EOSINOPHILS # (AUTO) 0.2 10^3/uL (0.0-0.3); EOSINOPHILS % (AUTO) 3 % (0-10); HEMATOCRIT 43 % (40-54); HEMOGLOBIN 13.9 g/dL (13.3-17.7); LYMPHOCYTES # (AUTO) 1.8 10^3/uL (1.0-4.0); LYMPHOCYTES % (AUTO) 34 % (12-44); MEAN CORPUSCULAR HEMOGLOBIN 28 pg (25-34); MEAN CORPUSCULAR HGB CONC 33 g/dL (32-36); MEAN CORPUSCULAR VOLUME 85 fL (80-99); MEAN PLATELET VOLUME 11.2 fL (9.0-12.2); MONOCYTES # (AUTO) 0.5 10^3/uL (0.0-1.0); MONOCYTES % (AUTO) 9 % (0-12); NEUTROPHILS # (AUTO) 2.7 10^3/uL (1.8-7.8); NEUTROPHILS % (AUTO) 53 % (42-75); PLATELET COUNT 179 10^3/uL (130-400); WHITE BLOOD COUNT 5.2 10^3/uL (4.3-11.0)
[2022-01-05 10:52] LABS: POTASSIUM 3.8 MMOL/L (3.6-5.0)
[2022-01-05 10:53] LABS: CALCIUM 9.1 MG/DL (8.5-10.1)
[2022-01-05 10:57] LABS: CREATININE SERUM 0.84 MG/DL (0.60-1.30)
[2022-01-05] MEDS ORDERED: morphine INJ 10 MG/ML 1ML (SYR OR VIAL) IVP STA (12:34)
[2022-01-05] MEDS ORDERED: CLINDAMYCIN 600 MG/4ML (CLEOCIN) VIAL IV ONE (16:00)
[2022-01-05] MEDS ORDERED: cefTRIAXone 1 GM PRE-MIX 50 ML IV STA (16:41)
--- NOTE | 2022-01-05 16:41 | ED EENT ---
History of Present Illness General Chief Complaint: Dental Problems/Pain Stated Complaint: TOOTH ABCESS Nursing Triage Note: ARRIVED VIA AMB TO ROOM 07 WITH COMPLAINTS OF SEVERE PAIN FROM A BAD TOOTH BOTTOM RIGHT SIDE . Source: patient Exam Limitations: no limitations History of Present Illness Date Seen by Provider: Jan 05, 2022 Time Seen by Provider: 10:10 Initial Comments This 41-year-old gentleman presents to the emergency room with severe dental pain around a broken and eroded proximal molar on the right mandible. There is significant swelling around the tooth. He has been treated with antibiotics multiple times for similar presentation, but his symptoms are now severe. He denies any fever. He is in distress from pain. He has been trying to get the tooth extracted but is having difficulty accomplishing that in a timely fashion through [facility] and without insurance. Allergies and Home Medications Allergies Coded Allergies: Penicillins (Unverified Allergy, Unknown, 03/23/15) Patient Home Medication List Home Medication List Reviewed: Yes Cephalexin (Cephalexin) 500 Mg Tablet, 500 MG PO QID Prescribed by: IBRAHIMA HERNÁNDEZ on 01/05/22 1643 Hydrocodone/Acetaminophen (Hydrocodone-Acetamin 5-325 mg) 5 Mg-325 Mg Tablet, 1 TAB PO Q4H PRN for PAIN-MODERATE (5-7) Prescribed by: IBRAHIMA HERNÁNDEZ on 01/05/22 1643 Review of Systems Review of Systems Constitutional: no symptoms reported Eyes: No Symptoms Reported Ears: No Symptoms Reported Nose: no symptoms reported Mouth: see HPI Throat: no symptoms reported Respiratory: no symptoms reported Cardiovascular: no symptoms reported Gastrointestinal: no symptoms reported Musculoskeletal: no symptoms reported Skin: no symptoms reported Neurological: No Symptoms Reported Past Qjbenel-Wwbgom-Uhcwbo Hx Patient Social History Tobacco Use?: Yes Smoking Status: Current Everyday Smoker Substance use?: Yes Substance type: Marijuana Alcohol Use?: Yes Alcohol Frequency: Couple times a week Immunizations Up To Date Tetanus Booster (TDap): Less than 5yrs PED Vaccines UTD: No Seasonal Allergies Seasonal Allergies: No Past Medical History Surgery/Hospitalization HX: PMH;ASTHMA. SURGERY;DENIES. Surgeries: Yes (HEMOROIDECTOMY, hydrocele surgery) Rectal Respiratory: Yes Asthma Cardiac: No Neurological: No Reproductive Disorders: No Sexually Transmitted Disease: No Genitourinary: Yes (Hydroceles, history of pyelonephritis) Gastrointestinal: Yes Hemorrhoids Musculoskeletal: Yes Chronic Back Pain Endocrine: No HEENT: No Cancer: No Psychosocial: No Integumentary: No Blood Disorders: No Adverse Reaction/Blood Tranf: No Family Medical History No Pertinent Family Hx Physical Exam Vital Signs Vital Signs - First Documented 01/05/22 09:30 Temp 36.3 Pulse 68 Resp 16 B/P (MAP) 153/102 (119) Pulse Ox 96 O2 Delivery Room Air Height, Weight, BMI Height: 5'9.00" Weight: 155lbs. oz. [id number]; 22.00 BMI Method:Stated General Appearance: WD/WN, moderate distress Eyes: bilateral eye normal inspection, bilateral eye PERRL, bilateral eye EOMI Ears: bilateral ear auricle normal, bilateral ear canal normal, bilateral ear TM normal Nose: normal inspection Mouth/Throat: other (Broken and eroded right most posterior lower molar with significant edema and induration surrounding the tooth. Gum tissue is overlying some of the tooth. This area is quite tender. No purulent drainage.) Neck: normal inspection Cardiovascular: regular rate, rhythm, no edema, no murmur Respiratory: lungs clear, normal breath sounds, no respiratory distress Neurologic/Psychiatric: filter helper II-XII nml as tested, no motor/sensory deficits, alert, normal mood/affect, oriented x 3 Skin: normal color, warm/dry Progress/Results/Core Measures Results/Orders Lab Results Laboratory Tests Test 01/05/22 10:35 Range/Units White Blood Count 5.2 4.3-11.0 10^3/uL Red Blood Count 5.03 4.30-5.52 10^6/uL Hemoglobin 13.9 13.3-17.7 g/dL Hematocrit 43 40-54 % Mean Corpuscular Volume 85 80-99 fL Mean Corpuscular Hemoglobin 28 25-34 pg Mean Corpuscular Hemoglobin Concent 33 32-36 g/dL Red Cell Distribution Width 13.8 10.0-14.5 % Platelet Count 179 130-400 10^3/uL Mean Platelet Volume 11.2 9.0-12.2 fL Immature Granulocyte % (Auto) 0 % Neutrophils (%) (Auto) 53 42-75 % Lymphocytes (%) (Auto) 34 12-44 % Monocytes (%) (Auto) 9 0-12 % Eosinophils (%) (Auto) 3 0-10 % Basophils (%) (Auto) 1 0-10 % Neutrophils # (Auto) 2.7 1.8-7.8 10^3/uL Lymphocytes # (Auto) 1.8 1.0-4.0 10^3/uL Monocytes # (Auto) 0.5 0.0-1.0 10^3/uL Eosinophils # (Auto) 0.2 0.0-0.3 10^3/uL Basophils # (Auto) 0.0 0.0-0.1 10^3/uL Immature Granulocyte # (Auto) 0.0 0.0-0.1 10^3/uL Sodium Level 140 135-145 MMOL/L Potassium Level 3.8 3.6-5.0 MMOL/L Chloride Level 108 H 98-107 MMOL/L Carbon Dioxide Level 22 21-32 MMOL/L Anion Gap 10 5-14 MMOL/L Blood Urea Nitrogen 11 7-18 MG/DL Creatinine 0.84 0.60-1.30 MG/DL Estimat Glomerular Filtration Rate 114 BUN/Creatinine Ratio 13 Glucose Level 97 70-105 MG/DL Calcium Level 9.1 8.5-10.1 MG/DL C-Reactive Protein High Sensitivity 0.44 0.00-0.50 MG/DL My Orders Orders - IBRAHIMA MORRISON MD Fentanyl Inj (Sublimaze Injection) (01/05/22 10:30) Ketorolac Injection (Toradol Injection) (01/05/22 10:30) Bupivacaine 0.5% Injection (Sensorcaine (01/05/22 10:30) Lidocaine 1% Inj 20 Ml (Xylocaine 1% Inj (01/05/22 10:30) Ed Iv/Invasive Line Start (01/05/22 10:19) Basic Metabolic Panel (01/05/22 10:19) Cbc With Automated Diff (01/05/22 10:19) Hs C Reactive Protein (01/05/22 10:19) Morphine Injection (Morphine Injection (01/05/22 12:34) Oxycodone/Apap 5/325mg Tablet (Percocet (01/05/22 16:45) Ceftriaxone 1 Gm Pre-Mix (Rocephin 1 Gm (01/05/22 16:41) Clindamycin 600 Mg/50 Ml Ivpb (Cleocin P (01/05/22 17:00) Medications Given in ED Current Medications Medications Dose Ordered Sig/Gwen Route Start Time Stop Time Status Last Admin Dose Admin Bupivacaine HCl 30 ml ONCE ONCE INJ 01/05/22 10:30 01/05/22 10:31 DC 01/05/22 16:25 30 ML Fentanyl Citrate 50 mcg ONCE ONCE IVP 01/05/22 10:30 01/05/22 10:31 DC 01/05/22 10:33 50 MCG Ketorolac Tromethamine 30 mg ONCE ONCE IVP 01/05/22 10:30 01/05/22 10:31 DC 01/05/22 10:32 30 MG Lidocaine HCl 20 ml ONCE ONCE INJ 01/05/22 10:30 01/05/22 10:31 DC 01/05/22 16:25 20 ML Oxycodone/ Acetaminophen 1 tab ONCE ONCE PO 01/05/22 16:45 01/05/22 16:46 DC 01/05/22 16:53 1 TAB Vital Signs/I&O 01/05/22 01/05/22 09:30 17:54 Temp 36.3 Pulse 68 79 Resp 16 16 B/P (MAP) 153/102 (119) 143/95 Pulse Ox 96 98 O2 Delivery Room Air Room Air Blood Pressure Mean: 119 Progress Progress Note : Progress Note Patient was initially treated with Toradol and fentanyl. Later morphine and Percocet were added. Labs were relatively unremarkable. Local anesthetic was provided on the lateral aspect of the jaw along with an infra alveolar nerve block. This performed with a one-to-one mixture of lidocaine and Marcaine. Due to the volume of patients in the ER, wait time was extended before attempt at draining abscess could be performed. Nerve block wore off and was repeated. In total, 4 mL of the anesthetic mixture was injected. There were then attempts to drain the abscess by inserting a 20-gauge needle into the most fluctuant areas and attempting to aspirate. This was performed in 3 separate locations at different angles. We then attempted to incise and drain using a #11 scalpel. 3 attempts were made with the scalpel without success. There was perhaps scant purulent drainage from one of the puncture sites. Patient did not have confidence in his ability to obtain prescription medications due to having less than a dollar of [employer] assets and his name. He was therefore robustly covered with clindamycin 600 mg IV and Rocephin 1 g IV while in the ER. I did speak with Dr. Blanton who said he would be willing to work with the patient on insurance status and he was invited to follow-up with Dr. Blanton. Dr. Blanton's contact information was given to the patient. This was provided as an alternative in the event [facility] was not able to provide him with prompt care for extraction. Departure Impression Primary Impression: Dental abscess Additional Impression: Dental decay Disposition: 01 HOME, SELF-CARE Condition: Stable Departure-Patient Inst. Referrals: MAURICE BLANTON DDS NO,LOCAL PHYSICIAN (PCP) Primary Care Physician Patient Instructions: Tooth Abscess ED, Dental Pain ED Add. Discharge Instructions: The antibiotics you are receiving in the ER should cover you for 24 hours. Then start the antibiotic prescribed tomorrow. For primary pain control use ibuprofen up to 600 mg every 6 hours. Add hydrocodone for pain not controlled by ibuprofen. Follow-up with a dentist as soon as possible for dental extraction. Dr. Blanton is an oral surgeon who may be able to assist you if [facility] is not able. Dr. Morrison was not able to contact Dr. Blanton from the emergency room, but his contact information is provided below if you would like to call his office. Return to the ER if you have worsening symptoms that include escalating pain not responsive to the medications or fevers. All discharge instructions reviewed with patient and/or family. Voiced understanding. Scripts Cephalexin (Cephalexin) 500 Mg Tablet 500 MG PO QID, #40 TAB Prov: IBRAHIMA MORRISON MD 01/05/22 Hydrocodone/Acetaminophen (Hydrocodone-Acetamin 5-325 mg) 5 Mg-325 Mg Tablet 1 TAB PO Q4H PRN for PAIN-MODERATE (5-7), #20 TAB Prov: IBRAHIMA MORRISON MD 01/05/22 Copy Copies To 1: MAURICE BLANTON DDS Copies To 2: LORE BRIZUELA JOSHUA T MD Jan 05, 2022 16:41
[2022-01-05] MEDS ORDERED: CEPH500T PO (16:43)
[2022-01-05] MEDS ORDERED: ACHD5005 PO (16:43)
[2022-01-05] MEDS ORDERED: oxyCODONE/APAP 5/325MG (PERCOCET 5) TABLET PO ONE (16:45)
[2022-01-05] MEDS ORDERED: CLINDAMYCIN 600 MG/50 ML IVPB 50 ML IV NR (17:00)
[2022-01-05 17:54] VITALS: BP 143/95
== END 2022-01-05 17:54 | disposition home or self-care (01) ==
LOC: EDUNIT# 09:01 → ER 09:02
DX: K04.7 Periapical abscess without sinus (principal); K02.9 Dental caries, unspecified; F17.290 Nicotine dependence, other tobacco product, uncomplicated
CPT/HCPCS: 36415; 80048; 85025; 86141

== ENCOUNTER → 2022-01-11 | Outpatient (REF) ==
[~2022-01-11] MED LIST changes: +CEPH500T PO
--- NOTE | 2022-01-11 09:50 | Diagnostic Imaging Report ---
INDICATION: Index finger injury with pain. AP, oblique and lateral views of the right index finger reveal nondisplaced mildly comminuted distal phalangeal fracture. This extends through the terminal tuft and shaft without involvement of the proximal articular surface. No other osseous abnormalities identified. Does appear to be injury to the soft tissues of the index finger at the level of the middle phalanx. IMPRESSION: Mildly comminuted fracture of the 2nd distal phalanx without intra-articular extension or other acute complication. Dictated by: Dictated on workstation # [id number]
== END | disposition home or self-care (01) ==
LOC: OCC 09:26
PROVIDERS: ATTEND Nurse Practitioner Family
DX: Z01.818 Encounter for other preprocedural examination (principal)
CPT/HCPCS: 73140

== ENCOUNTER 2022-01-12 05:29 | Outpatient (CLI) | payer SELFPAY ==
[~2022-01-12] VITALS: Ht 175.3 cm; Wt 68.0 kg
[2022-01-19] MEDS ORDERED: ACHD5005 PO (09:59)
[2022-01-19] MEDS ORDERED: CEPH500T PO (09:59)
== END 2022-01-15 11:31 | disposition home or self-care (01) ==
LOC: PREOP 05:29
PROVIDERS: ATTEND Urology
DX: Z01.818 Encounter for other preprocedural examination (principal)

== ENCOUNTER → 2022-01-12 | Outpatient (CLI) | payer OTHER | LOC: ORTHO 15:30 | PROVIDERS: ATTEND Orthopaedic Surgery | DX: S62.630A Displaced fracture of distal phalanx of right index finger, initial encounter for closed fracture (principal); X58.XXXA Exposure to other specified factors, initial encounter; J45.909 Unspecified asthma, uncomplicated | CPT/HCPCS: 99202 ==

== ENCOUNTER → 2022-01-19 | Day surgery (SDC) | payer SELFPAY ==
[~2022-01-19] VITALS: Ht 175 cm; Wt 68.0 kg
[2022-01-19] VITALS (10 sets, daily range): BP systolic 99–163; BP diastolic 59–97
[~2022-01-19] MED LIST changes: +HYDROcodone/APAP 5 MG/325 MG (LORTAB) TAB ONE; +HYDROcodone/APAP 5 MG/325 MG (LORTAB) TAB PO ONE; +LACTATED RINGERS 1,000 ML IV PRN; +LIDOCAINE PF 2% 5 ML (XYLOCAINE) VIAL ONE; +MEPERIDINE (DEMEROL) INJ 50 MG/ML IVP ONE; +MIDAZOLAM 2 MG/2 ML (VERSED) VIAL IV ONE; +MIDAZOLAM 2 MG/2 ML (VERSED) VIAL ONE; +ONDANSETRON 4 MG/2 ML (SDV) Z0FRAN ONE; +SEVOFLURANE (ULTANE) 15 ML INHAL SOLN ONE; +fentaNYL INJ 100 MCG/2 ML AMP ONE; +morphine INJ 10 MG/ML 1ML (SYR OR VIAL) IVP ONE; +morphine INJ 10 MG/ML 1ML (SYR OR VIAL) ONE; +proPOfol 200 MG/20 ML (DIPRIVAN) VIAL IV ONE
--- NOTE | 2022-01-19 07:59 | Progress Note-Pre Operative ---
Pre-Operative Progress Note H&P Reviewed The H&P was reviewed, patient examined and no changes noted. Date Seen by Provider: January 19, 2022 Time Seen by Provider: 07:58 Date H&P Reviewed: January 19, 2022 Time H&P Reviewed: 07:58 Pre-Operative Diagnosis: LT LARGE HYDROCELE MOMO WU MD January 19, 2022 07:58
--- NOTE | 2022-01-19 08:00 | Progress Note-Post Operative ---
Post-Operative Progess Note Surgeon (s)/Gaming Host (s) Surgeon MOMO WU MD Gaming Host: NONE Pre-Operative Diagnosis LT LARGE HYDROCELE Post-Operative Diagnosis SAME Procedure & Operative Findings Date of Procedure 01/19/22 Procedure Performed/Findings LT HYDROCELECTOMY Anesthesia Type GENERAL Estimated Blood Loss Estimated blood loss (mL): NEGLIGIBLE Specimens/Packing Specimens Removed NONE Packin/4# CESAR DRAIN MOMO WU MD January 19, 2022 08:00
--- NOTE | 2022-01-19 08:02 | Discharge Inst-Urology ---
Discharge Inst-Urology Reconcile Patient Problems Problems Reviewed?: Yes Final Diagnosis LT LARGE HYDROCELE Patient Instructions/Follow Up Plan/Assessment/Instructions Please make appointment to been seen in office in 2 weeks. Rest till then and scrotal support Ice to scrotum in RR and at home for 6 hours and then PRN Come to office tomorrow 9am to DC drain, may shower after that and no bath Keep bowels soft and moving Increase oral fluids for 48 hours and then as needed. Diet as tolerated. If questions or concerns contact your physician Or seek help at emergency department. MOMO WU MD January 19, 2022 08:02
--- NOTE | 2022-01-19 10:03 | Anesthesia-General Post-Op ---
General Patient Condition Mental Status/LOC: Same as Preop Cardiovascular: Satisfactory Nausea/Vomiting: Absent Respiratory: Satisfactory Pain: Controlled Complications: Absent Post Op Complications Complications None Follow Up Care/Instructions Patient Instructions None needed. Anesthesia/Patient Condition Patient Condition Patient is doing well, no complaints, stable vital signs, no apparent adverse anesthesia problems. No complications reported per nursing. JOHAN TO CRNA January 19, 2022 10:03
[2022-01-19] MEDS: ONDANSETRON 4 MG/2 ML (SDV) Z0FRAN IVP PRN ×2 (10:35→10:39)
--- NOTE | 2022-01-19 13:44 | OPERATIVE REPORT ---
DATE OF SERVICE: 01/19/2022 PREOPERATIVE DIAGNOSIS: Large left hydrocele. POSTOPERATIVE DIAGNOSIS: Large left hydrocele. OPERATION PERFORMED: Left hydrocelectomy. SURGEON: Momo Wu MD ANESTHESIA: General. COMPLICATIONS: None. DESCRIPTION OF PROCEDURE: Under satisfactory general anesthesia, the patient in supine position, the abdomen, genitalia and thigh were prepped and draped in the usual sterile fashion. An incision was made in the medial raphae, carried through the layers of the scrotum. Bleeders were cauterized as the dissection was proceeding. A large amount of clear hydrocele fluid was suctioned and then the testicle and its appendages were delivered into the wound. It was normal looking except small and there was a small cyst at the head of the testicle was drained and the appendix testicle was excised. The hydrocele sac was everted behind the spermatic cord with several interrupted 3-0 chromic catgut. The testicle was replaced into the scrotum that was drained with a quarter of an inch Abby drain, brought through a separate stab wound at the bottom of the scrotum, secured in position with a 3-0 chromic catgut suture. Closure was performed in two layers, the dartos with a running hemostatic 3-0 chromic catgut suture and the skin was interrupted 4-0 Vicryl. Telfa, fluffs and scrotal support was applied. Needle, sponge, instrument counts were correct x2. The patient's estimated blood loss negligible. The patient tolerated the procedure and anesthesia well and was sent to recovery room in stable condition. Job ID: [id number] DocumentID: [id number] Dictated Date: 01/19/2022 09:58:41 Agricultural Extension Agent Date: 01/19/2022 13:43:45 Dictated By: MOMO WU MD
== END | disposition home or self-care (01) ==
LOC: SDC 07:34
PROVIDERS: ATTEND Urology
DX: N43.3 Hydrocele, unspecified (principal); N44.2 Benign cyst of testis; F17.210 Nicotine dependence, cigarettes, uncomplicated; N40.0 Benign prostatic hyperplasia without lower urinary tract symptoms; J45.909 Unspecified asthma, uncomplicated
CPT/HCPCS: 87081

== ENCOUNTER → 2022-01-21 | Outpatient (CLI) | payer OTHER ==
[~2022-01-21] MED LIST changes: -HYDROcodone/APAP 5 MG/325 MG (LORTAB) TAB ONE; -HYDROcodone/APAP 5 MG/325 MG (LORTAB) TAB PO ONE; -LACTATED RINGERS 1,000 ML IV PRN; -LIDOCAINE PF 2% 5 ML (XYLOCAINE) VIAL ONE; -MEPERIDINE (DEMEROL) INJ 50 MG/ML IVP ONE; -MIDAZOLAM 2 MG/2 ML (VERSED) VIAL IV ONE; -MIDAZOLAM 2 MG/2 ML (VERSED) VIAL ONE; -ONDANSETRON 4 MG/2 ML (SDV) Z0FRAN ONE; -SEVOFLURANE (ULTANE) 15 ML INHAL SOLN ONE; -fentaNYL INJ 100 MCG/2 ML AMP ONE; -morphine INJ 10 MG/ML 1ML (SYR OR VIAL) IVP ONE; -morphine INJ 10 MG/ML 1ML (SYR OR VIAL) ONE; -proPOfol 200 MG/20 ML (DIPRIVAN) VIAL IV ONE
== END ==
LOC: ORTHO 03:30
PROVIDERS: ATTEND Orthopaedic Surgery
DX: S62.639D Displaced fracture of distal phalanx of unspecified finger, subsequent encounter for fracture with routine healing (principal); X58.XXXD Exposure to other specified factors, subsequent encounter
CPT/HCPCS: 99213

== ENCOUNTER 2022-02-17 13:13 | Emergency (ER) | payer SELFPAY ==
[2022-02-17 13:32] LABS: BILIRUBIN,URINE NEGATIVE (NEGATIVE); CLARITY,URINE CLEAR; COLOR,URINE YELLOW; GLUCOSE, URINE (UA) NEGATIVE (NEGATIVE); KETONES,URINE NEGATIVE (NEGATIVE); LEUKOCYTE ESTERASE ,URINE NEGATIVE (NEGATIVE); NITRITE,URINE NEGATIVE (NEGATIVE); PROTEIN,URINE NEGATIVE (NEGATIVE)
[2022-02-17 13:52] LABS: AMORPHOUS SEDIMENT,UR MOD AMOR PHOSPHATE /LPF; BACTERIA,URINE NEGATIVE /HPF
--- NOTE | 2022-02-17 14:19 | ED General ---
General Chief Complaint: General Problems/Pain Stated Complaint: STD CHECK Nursing Triage Note: PT AMB TO TRIAGE REQUESTING AN STD CHECK. PT STATES HIS EX TOLD HIM TODAY THAT SHE TESTED POS FOR TRICH AND THAT HE SHOULD GET TESTED ALSO. PT DENIES ANY URINARY SX AT THIS TIME Source of Information: Patient Exam Limitations: No Limitations History of Present Illness Date Seen by Provider: Feb 17, 2022 Time Seen by Provider: 13:25 Initial Comments This is a well-appearing 41-year-old male who presented to the ER via POV for a STI check. States that his girlfriend just tested positive for trichomonas and he would also like to be tested. He denies any penile discharge, no pain, no fever, no nausea no vomiting. States that he is completely asymptomatic he would just like checked. Has been sexually active with one partner. Allergies and Home Medications Allergies Coded Allergies: Penicillins (Unverified Allergy, Unknown, 03/23/15) Patient Home Medication List Home Medication List Reviewed: Yes Cephalexin (Cephalexin) 500 Mg Tablet, 500 MG PO QID Prescribed by: IBRAHIMA HERNÁNDEZ on 01/05/22 1643 Cephalexin (Cephalexin) 500 Mg Tablet, 500 MG PO BID Prescribed by: ADI ALVES on 01/19/22 0959 Hydrocodone/Acetaminophen (Hydrocodone-Acetamin 5-325 mg) 5 Mg-325 Mg Tablet, 1-2 TAB PO Q4H PRN for PAIN-MODERATE (5-7) Prescribed by: ADI ALVES on 01/19/22 0959 Review of Systems Review of Systems Constitutional: no symptoms reported EENTM: no symptoms reported Respiratory: no symptoms reported Cardiovascular: no symptoms reported Gastrointestinal: no symptoms reported Genitourinary: no symptoms reported Musculoskeletal: no symptoms reported Skin: no symptoms reported Psychiatric/Neurological: No Symptoms Reported Hematologic/Lymphatic: No Symptoms Reported Past Bkljdkn-Xfbwcc-Boanfl Hx Patient Social History Tobacco Use?: Yes Tobacco type used: Cigarettes Smoking Status: Current Everyday Smoker Substance use?: Yes Substance type: Marijuana Substance frequency: Several times a month Alcohol Use?: Yes Alcohol type: Hard Liquor Alcohol Frequency: Once in a while Pt feels they are or have been: No Immunizations Up To Date Tetanus Booster (TDap): Unknown PED Vaccines UTD: No Influenza Vaccine Up-to-Date: No; Not Current Seasonal Allergies Seasonal Allergies: No Past Medical History Surgery/Hospitalization HX: PMH;ASTHMA. SURGERY;HYDROCELE Surgeries: Yes (hydrocele surgery) Rectal Respiratory: Yes Asthma Currently Using CPAP: No Currently Using BIPAP: No Cardiac: No Neurological: No Reproductive Disorders: No Sexually Transmitted Disease: No Genitourinary: Yes (Hydroceles, history of pyelonephritis) Gastrointestinal: Yes Hemorrhoids Musculoskeletal: Yes Chronic Back Pain Endocrine: No HEENT: No Cancer: No Psychosocial: No Integumentary: No Blood Disorders: No Adverse Reaction/Blood Tranf: No Family Medical History No Pertinent Family Hx Physical Exam Vital Signs Vital Signs - First Documented 02/17/22 13:20 Temp 36.5 Pulse 63 Resp 16 B/P (MAP) 166/95 (118) Capillary Refill : Height, Weight, BMI Height: 5'9.00" Weight: 155lbs. oz. 70.254269zj; 22.20 BMI Method:Stated General Appearance: No Apparent Distress, WD/WN Eyes: Bilateral Eye Normal Inspection, Bilateral Eye EOMI HEENT: PERRL/EOMI, Normal ENT Inspection Neck: Full Range of Motion, Normal Inspection, Non Tender Respiratory: Lungs Clear, Normal Breath Sounds, No Accessory Muscle Use Cardiovascular: Regular Rate, Rhythm, No Murmur Back: Normal Inspection Extremity: Normal Inspection, Normal Range of Motion Neurologic/Psychiatric: Alert, Oriented x3, No Motor/Sensory Deficits, Normal Mood/Affect Skin: Normal Color, Warm/Dry Progress/Results/Core Measures Suspected Sepsis SIRS Temperature: Pulse: 63 Respiratory Rate: 16 Blood Pressure 166 /95 Mean: 118 Results/Orders Lab Results Laboratory Tests Test 02/17/22 13:25 Range/Units Urine Color YELLOW Urine Clarity CLEAR Urine pH 7.0 5-9 Urine Specific [place] 1.025 H 1.016-1.022 Urine Protein NEGATIVE NEGATIVE Urine Glucose (UA) NEGATIVE NEGATIVE Urine Ketones NEGATIVE NEGATIVE Urine Nitrite NEGATIVE NEGATIVE Urine Bilirubin NEGATIVE NEGATIVE Urine Urobilinogen 0.2 < = 1.0 MG/DL Urine Leukocyte Esterase NEGATIVE NEGATIVE Urine RBC (Auto) NEGATIVE NEGATIVE Urine RBC NONE /HPF Urine WBC NONE /HPF Urine Crystals PRESENT H /LPF Urine Amorphous Sediment MOD BORIS PHOSPHATE H /LPF Urine Bacteria NEGATIVE /HPF Urine Casts NONE /LPF Urine Mucus NEGATIVE /LPF Urine Culture Indicated NO Micro Results Microbiology 02/17/22 Wet Prep - Final, Complete My Orders Orders - SHARAD,STORMY D LABORATORY CHIEF Ua Culture If Indicated (02/17/22 13:25) Chlamydia Trachomatis Urine (02/17/22 14:02) Neis Geoff Dna Urine Test (02/17/22 14:02) Wet Prep (02/17/22 14:14) Vital Signs/I&O 02/17/22 02/17/22 13:20 14:47 Temp 36.5 36.5 Pulse 63 67 Resp 16 16 B/P (MAP) 166/95 (118) 158/92 Capillary Refill : Blood Pressure Mean: 118 Progress Note : Progress Note Orders placed for STI testing, will await results. States that his girlfriend's STI testing indicated trichomonas only, his test here was negative. Declined to be treated for chlamydia gonorrhea until results are back. Discharge plan of care reviewed and he is agreeable with plan. Departure Impression Primary Impression: Sexually transmitted disease exposure Disposition: HOME, SELF-CARE Condition: Stable Departure-Patient Inst. Decision time for Depature: 14:42 Referrals: NO,LOCAL PHYSICIAN (PCP/Family) Primary Care Physician Patient Instructions: Sexually Transmitted Diseases ED Add. Discharge Instructions: Plan: 1. Follow up with [facility] or with the [facility] if you would like more comprehensive sexually transmitted disease testing. 2. You were tested for Gonorrhea, Chlamydia, and Trichomoniasis. Your Trich was negative. Your Gono/Chlam test are still pending. We will notify if we need to treat. 3. Return for any new, concerning, or worsening symptoms. All discharge instructions reviewed with patient and/or family. Voiced understanding. GENE OROURKE APRN Feb 17, 2022 14:19
[2022-02-17 14:47] VITALS: BP 158/92
== END 2022-02-17 14:49 | disposition home or self-care (01) ==
LOC: EDUNIT# 13:13 → ER 13:15
DX: Z20.2 Contact with and (suspected) exposure to infections with a predominantly sexual mode of transmission (principal); F17.210 Nicotine dependence, cigarettes, uncomplicated
CPT/HCPCS: 36415; 81000; 87210; 87491; 87591; 99284

== ENCOUNTER 2022-05-21 19:36 | Emergency (ER) | payer SELFPAY ==
[~2022-05-21] VITALS: Ht 175.2 cm; Wt 68.0 kg
[2022-05-21] MEDS ORDERED: DOXYCYCLINE 100 MG (VIBRAMYCIN) TABLET PO STA (20:31)
[2022-05-21] MEDS ORDERED: KETOROLAC 15 MG/ML VIAL IVP ONE (20:45)
[2022-05-21] MEDS ORDERED: KETOROLAC 30 MG/ML VIAL IM ONE (20:45)
--- NOTE | 2022-05-21 20:49 | ED EENT ---
History of Present Illness General Chief Complaint: Dental Problems/Pain Stated Complaint: ABCESS TOOTH Nursing Triage Note: Pt presents with c/o tooth pain. He reports going to [facility] 2 days ago and being given abx and pain medication. Pt report pain is persistent and he's been unable to eat. Was told to come to ER for IV fluids. History of Present Illness Date Seen by Provider: May 21, 2022 Time Seen by Provider: 20:30 Initial Comments 41-year-old male with a chronic tooth infection, is here with complaints of the same associated with the pain and swelling in his left gums and left side of his face. Patient has been on clindamycin and and also azithromycin with the last day of Azithro being today. Patient was also given Magic mouthwash and meloxicam for pain. Patient states that it is still hurting. Patient has not made a dental appointment because he does not have the money to do dental surgery. Denies fever, shortness of breath, difficulty swallowing. Patient is able to speak in complete sentences Allergies and Home Medications Allergies Coded Allergies: Penicillins (Unverified Allergy, Unknown, 03/23/15) Patient Home Medication List Home Medication List Reviewed: Yes Cephalexin (Cephalexin) 500 Mg Tablet, 500 MG PO QID Prescribed by: IBRAHIMA HERNÁNDEZ on 01/05/22 1643 Cephalexin (Cephalexin) 500 Mg Tablet, 500 MG PO BID Prescribed by: ADI ALVES on 01/19/22 0959 Hydrocodone/Acetaminophen (Hydrocodone-Acetamin 5-325 mg) 5 Mg-325 Mg Tablet, 1- 2 TAB PO Q4H PRN for PAIN-MODERATE (5-7) Prescribed by: ADI ALVES on 01/19/22 0959 Review of Systems Review of Systems Constitutional: no symptoms reported Eyes: No Symptoms Reported Ears: No Symptoms Reported Nose: no symptoms reported Mouth: other (dental caries, gum infection) Throat: no symptoms reported Respiratory: no symptoms reported Cardiovascular: no symptoms reported Gastrointestinal: no symptoms reported Musculoskeletal: no symptoms reported Skin: no symptoms reported Neurological: No Symptoms Reported Hematologic/Lymphatic: No Symptoms Reported Immunological/Allergic: no symptoms reported Past Gpthcgy-Jihlrm-Rqdwnl Hx Immunizations Up To Date Tetanus Booster (TDap): Unknown PED Vaccines UTD: No Seasonal Allergies Seasonal Allergies: No Past Medical History Surgery/Hospitalization HX: PMH;ASTHMA. SURGERY;HYDROCELE Surgeries: Yes (hydrocele surgery) Rectal Respiratory: Yes Asthma Currently Using CPAP: No Currently Using BIPAP: No Cardiac: No Neurological: No Reproductive Disorders: No Sexually Transmitted Disease: No Genitourinary: Yes (Hydroceles, history of pyelonephritis) Gastrointestinal: Yes Hemorrhoids Musculoskeletal: Yes Chronic Back Pain Endocrine: No HEENT: No Cancer: No Psychosocial: No Integumentary: No Blood Disorders: No Adverse Reaction/Blood Tranf: No Family Medical History No Pertinent Family Hx Physical Exam Vital Signs Vital Signs - First Documented 05/21/22 19:54 Temp 37.0 Pulse 77 Resp 18 B/P (MAP) 133/79 (97) Height, Weight, BMI Height: 5'9.00" Weight: 155lbs. oz. 70.280369nh; 22.00 BMI Method:Stated General Appearance: WD/WN, mild distress Eyes: bilateral eye PERRL Nose: normal inspection Mouth/Throat: dental tenderness, other (swelling in right side of face, mild. gingivitis, and right lower molar caries) Neck: non-tender, full range of motion Cardiovascular: regular rate, rhythm Respiratory: chest non-tender, lungs clear, normal breath sounds Neurologic/Psychiatric: alert, oriented x 3 Skin: normal color Progress/Results/Core Measures Results/Orders My Orders Orders - OLINDA FUENTES MD Doxycycline Hyclate Tablet (Vibramycin T (05/21/22 20:31) Ketorolac Injection (Toradol Injection) (05/21/22 20:45) Vital Signs/I&O 05/21/22 19:54 Temp 37.0 Pulse 77 Resp 18 B/P (MAP) 133/79 (97) Blood Pressure Mean: 97 Progress Progress Note : Progress Note 1. DENTAL CARIES WITH INFECTION: - Doxycycline bid for 7 days - Toradol im STAT in ER - Continue using Meloxicam for pain and magic maouthwash - Warm compresses - Good oral hygeine - Follow up with dentist ADRIAN Departure Impression Primary Impression: Dental caries Disposition: 01 HOME, SELF-CARE Condition: Stable Departure-Patient Inst. Referrals: NO,LOCAL PHYSICIAN (PCP/Family) Primary Care Physician Patient Instructions: Dental Pain, Dental Pain (DC), Tooth Decay, Adult (DC) Add. Discharge Instructions: - Continue using Meloxicam for pain and magic maouthwash - Warm compresses - Good oral hygeine - Follow up with dentist ADRIAN - Doxycycline 100mg bid for 7 days All discharge instructions reviewed with patient and/or family. Voiced understanding. Scripts Doxycycline Hyclate (Doxycycline Hyclate) 100 Mg Tablet 100 MG PO BID for 7 Days, TAB Prov: OLINDA FUENTES MD 05/21/22 Work/School Note: Work Release Form Date Seen in the Emergency Department: May 21, 2022 Return to Work: May 25, 2022 OLINDA FUENTES MD May 21, 2022 20:49
[2022-05-21] MEDS ORDERED: DOXY100T2 PO (20:50)
[2022-05-21 21:10] VITALS: BP 130/71
== END 2022-05-21 21:18 | disposition home or self-care (01) ==
LOC: EDUNIT# 19:36 → ER 19:41
DX: K02.9 Dental caries, unspecified (principal); K04.7 Periapical abscess without sinus; Z88.0 Allergy status to penicillin; Z28.310 Unvaccinated for COVID-19
CPT/HCPCS: 99284

== ENCOUNTER 2022-12-08 13:45 | Outpatient (RCR) | payer OTHER | END 2022-12-10 | disposition home or self-care (01) | PROVIDERS: ATTEND Internal Medicine Pulmonary Disease | DX: M79.645 Pain in left finger(s) (principal) ==

== ENCOUNTER 2023-01-03 13:37 | Outpatient (RCR) | payer OTHER | END 2023-01-09 | disposition home or self-care (01) | PROVIDERS: ATTEND Internal Medicine Pulmonary Disease | DX: M79.645 Pain in left finger(s) (principal) ==

== ENCOUNTER 2023-02-17 06:32 | Emergency (ER) | payer SELFPAY ==
[~2023-02-17] VITALS: Ht 175 cm; Wt 68.0 kg
[2023-02-17] MEDS ORDERED: methylPREDNISolone 125 MG (Solu-MEDROL) VIAL ONE (06:53)
--- NOTE | 2023-02-17 06:56 | ED General ---
General Chief Complaint: Allergic Reaction Stated Complaint: POSS ALLERGIC REACTION Nursing Triage Note: C/O HIVES/ITCHING TO BILATERAL ARMS/TRUNK THIS AM. Source of Information: Patient Exam Limitations: No Limitations History of Present Illness Date Seen by Provider: Feb 17, 2023 Time Seen by Provider: 06:40 Initial Comments This 42-year-old gentleman presents to the emergency room with pruritic hives throughout his trunk and arms that started early this morning. He presumes it is related to the decongestant medication he has been taking containing phenylephrine and acetaminophen. He took that medication throughout the evening yesterday but did not develop the hives until early this morning. He has known allergies to shellfish, penicillin, and tomatoes, but he denies consuming any of these things in the last 24 hours. He says there is some mild shortness of breath, but he has also been ill with an acute upper respiratory syndrome with congestion and fatigue. He denies any fever but he does seem chilled on arrival. Measured temperature is 35.4. He has not had any ill exposures that he is aware of. He took the "recommended dose of children's Benadryl" earlier this morning. By his description, it sounds like he probably took 12.5 mg. Allergies and Home Medications Allergies Coded Allergies: phenylephrine (Verified Allergy, Intermediate, Hives, 02/17/23) Penicillins (Unverified Allergy, Unknown, 03/23/15) shellfish derived (Verified Allergy, Unknown, 02/17/23) tomato (Verified Allergy, Unknown, 02/17/23) Patient Home Medication List Home Medication List Reviewed: Yes Prednisone (Prednisone) 20 Mg Tab, 20 MG PO BID Prescribed by: IBRAHIMA HERNÁNDEZ on 02/17/23 0802 Discontinued Medications Cephalexin (Cephalexin) 500 Mg Tablet, 500 MG PO QID Discontinued Reason: No Longer Taking Prescribed by: IBRAHIMA HERNÁNDEZ on 01/05/22 1643 Last Action: Discontinued Cephalexin (Cephalexin) 500 Mg Tablet, 500 MG PO BID Discontinued Reason: No Longer Taking Prescribed by: ADI ALVES on 01/19/22 0959 Last Action: Discontinued Doxycycline Hyclate (Doxycycline Hyclate) 100 Mg Tablet, 100 MG PO BID Discontinued Reason: No Longer Taking Prescribed by: OLINDA FUENTES MD on 05/21/222049 Last Action: Discontinued Hydrocodone/Acetaminophen (Hydrocodone-Acetamin 5-325 mg) 5 Mg-325 Mg Tablet, 1- 2 TAB PO Q4H PRN for PAIN-MODERATE (5-7) Discontinued Reason: No Longer Taking Prescribed by: ADI ALVES on 01/19/2284 Last Action: Discontinued Review of Systems Review of Systems Constitutional: see HPI EENTM: see HPI Respiratory: see HPI Cardiovascular: no symptoms reported Gastrointestinal: no symptoms reported Genitourinary: no symptoms reported Musculoskeletal: no symptoms reported Skin: see HPI Psychiatric/Neurological: No Symptoms Reported Hematologic/Lymphatic: No Symptoms Reported Immunological/Allergic: no symptoms reported Past Koouors-Zxxtls-Ymulow Hx Patient Social History Tobacco Use?: Yes Substance use?: Yes Substance type: Marijuana Alcohol Use?: Yes Alcohol Frequency: Once in a while Pt feels they are or have been: No Immunizations Up To Date Tetanus Booster (TDap): Unknown PED Vaccines UTD: No First/Initial COVID19 Vaccinat: NA Seasonal Allergies Seasonal Allergies: No Past Medical History Surgery/Hospitalization HX: PMH;ASTHMA. 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), Rectal Respiratory: Yes Asthma Currently Using CPAP: No Currently Using BIPAP: No Cardiac: No Neurological: No Reproductive Disorders: No Sexually Transmitted Disease: No Genitourinary: Yes (Hydroceles, history of pyelonephritis) Gastrointestinal: Yes Hemorrhoids Musculoskeletal: Yes Chronic Back Pain Endocrine: No HEENT: No Cancer: No Psychosocial: No Integumentary: No Blood Disorders: No Adverse Reaction/Blood Tranf: No Family Medical History No Pertinent Family Hx Physical Exam Vital Signs Vital Signs - First Documented 02/17/23 06:36 Temp 35.4 Pulse 64 Resp 16 B/P (MAP) 136/112 (120) Pulse Ox 100 O2 Delivery Room Air Capillary Refill : Less Than 3 Seconds Height, Weight, BMI Height: 5'9.00" Weight: 155lbs. oz. 70.323829io; 22.00 BMI Method:Stated General Appearance: WD/WN, Anxious HEENT: PERRL/EOMI, Normal ENT Inspection, Pharynx Normal, Other (Nasal congestion) Neck: Normal Inspection Respiratory: Lungs Clear, Normal Breath Sounds, No Accessory Muscle Use Cardiovascular: Regular Rate, Rhythm, No Edema, No Murmur Extremity: Normal Inspection, No Pedal Edema Neurologic/Psychiatric: Alert, Oriented x3, No Motor/Sensory Deficits, Other (Anxious) Skin: Warm/Dry, Rash (Hives over the trunk and proximal upper extremities) Progress/Results/Core Measures Suspected Sepsis SIRS Temperature: Pulse: 64 Respiratory Rate: 16 Blood Pressure 136 /112 Mean: 120 Results/Orders Lab Results Laboratory Tests Test 02/17/23 06:45 Range/Units Influenza Type A (RT-PCR) Not Detected Not Detecte Influenza Type B (RT-PCR) Not Detected Not Detecte SARS-CoV-2 RNA (RT-PCR) Not Detected Not Detecte My Orders Orders - IBRAHIMA ACOSTA MD Diphenhydramine Injection (Benadryl Inje (02/17/23 07:00) Methylprednisolone Sod Succ (Solu-Medrol (02/17/23 12:00) Famotidine Injection (Pepcid Injection) (02/17/23 07:00) Ed Iv/Invasive Line Start (02/17/23 06:47) Covid 19 Inhouse Test (02/17/23 06:47) Influenza A And B By Pcr (02/17/23 06:47) Methylprednisolone Sod Succ (Solu-Medrol (02/17/23 06:53) Medications Given in ED Current Medications Medications Dose Ordered Sig/Gwen Route Start Time Stop Time Status Last Admin Dose Admin Diphenhydramine HCl 25 mg ONCE ONCE IVP 02/17/23 07:00 02/17/23 07:01 DC 02/17/23 06:56 25 MG Famotidine 20 mg ONCE ONCE IVP 02/17/23 07:00 02/17/23 07:01 DC 02/17/23 06:55 20 MG Vital Signs/I&O 02/17/23 06:36 Temp 35.4 Pulse 64 Resp 16 B/P (MAP) 136/112 (120) Pulse Ox 100 O2 Delivery Room Air Capillary Refill : Less Than 3 Seconds Blood Pressure Mean: 120 Progress Note #1: Time: 07:01 Progress Note Patient is being treated with Solu-Medrol 125 mg, Pepcid 20 mg, and Benadryl 25 mg followed by IV route. We will monitor his progress. Progress Note #2: Time: 07:45 Progress Note Hives have receded significantly, and patient is feeling better. He was noted to be using his inhaler in the exam room. He is not noted to have any wheezing or prolonged expiratory phase on exam, so we discussed with him to use his inhaler and appropriate use. Phenylephrine was added to his allergy list. Departure Impression Primary Impression: Hives Additional Impression: Upper respiratory infection Qualified Codes: J06.9 - Acute upper respiratory infection, unspecified Disposition: 01 HOME, SELF-CARE Condition: Improved Departure-Patient Inst. Decision time for Depature: 07:46 Referrals: NO,LOCAL PHYSICIAN (PCP/Family) Primary Care Physician Patient Instructions: Asthma, Adult ED, Hives Add. Discharge Instructions: The exact cause of your hives is uncertain, but they may be related to the phenylephrine decongestant you have been taking. Please check any zoha-dtx-zpvgaud decongestant or cough or cold medication in the future to ensure it does not contain phenylephrine before you take it. Please list phenylephrine as an allergy in any future healthcare encounters. Start your prednisone prescription this evening. Take all of 4 doses to help prevent rebound of hives. Also take Pepcid (famotidine) on a scheduled basis twice daily for the next several days to prevent rebound. Pepcid is an antiacid medication but also works well as a potent antihistamine for allergic reactions. Keep Benadryl (diphenhydramine) on hand and take 50 mg every 4 hours as needed for rebound allergic reactions. Return to care if you have worsening symptoms despite following these instructions. If you have life-threatening reactions that involves swelling of the lips, tongue, or throat, or if you develop significant shortness of breath, take Benadryl and return to the emergency room promptly. Alternatively, call 911. Use your inhaler only if you are experiencing wheezing or true shortness of breath. Avoid use of your inhaler when you are simply feeling anxious as it may worsen anxiety. All discharge instructions reviewed with patient and/or family. Voiced understanding. Scripts Prednisone (Prednisone) 20 Mg Tab 20 MG PO BID, #4 TAB 0 Refills Prov: IBRAHIMA ACOSTA MD 02/17/23 IBRAHIMA ACOSTA MD Feb 17, 2023 06:56
[2023-02-17] MEDS ORDERED: FAMOTIDINE 20MG/2ML IV (PEPCID) IVP ONE (07:00)
[2023-02-17] MEDS ORDERED: diphenhydrAMINE 50 MG/ML INJ (BENADRYL) IVP ONE (07:00)
[2023-02-17] MEDS ORDERED: PRD20T PO (08:02)
[2023-02-17 08:13] VITALS: BP 126/83
[2023-02-17] MEDS ORDERED: methylPREDNISolone 125 MG (Solu-MEDROL) VIAL IVP SCH (12:00)
== END 2023-02-17 08:13 | disposition home or self-care (01) ==
LOC: EDUNIT# 06:32 → ER 06:35
DX: L50.9 Urticaria, unspecified (principal); J06.9 Acute upper respiratory infection, unspecified; Z20.822 Contact with and (suspected) exposure to COVID-19
CPT/HCPCS: 87636

== ENCOUNTER 2023-03-15 23:50 | Emergency (ER) | payer SELFPAY ==
[~2023-03-15] VITALS: Ht 175 cm; Wt 70.3 kg
[2023-03-16 00:01] VITALS: BP 142/94
--- NOTE | 2023-03-16 00:27 | ED Lower Extremity ---
General Chief Complaint: Lower Extremity Stated Complaint: BITE ON BOTTOM OF RT FOOT Source: patient History of Present Illness Date Seen by Provider: Mar 16, 2023 Time Seen by Provider: 00:10 Initial Comments PT ARRIVES VIA POV C/O PAIN, SWELLING AND REDNESS TO THE BOTTOM OF HIS RIGHT FOOT STATES THAT HE THINKS HE MIGHT HAVE BEEN BITTEN BY SOMETHING WHEN HE WAS CAMPING LAST --TUESDAY NIGHT OR TUESDAY MORNING STATES HE HAD A STINGING SENSATION WHEN HE PUT ON HIS SHOE, AT BASE OF 5TH TOE/BOTTOM OF HIS FOOT HE HAS HAD INCREASED PAIN SINCE YESTERDAY, BUT HAS NOT LOOKED AT HIS FOOT UNTIL EARLIER TODAY. HE HAS NOT SOUGHT CARE UNTIL TONIGHT SYMPTOMS NO DIFFERENT TONIGHT HAS NOT TAKEN ANYTHING FOR PAIN NO FEVER NO HISTORY OF SIMILAR NO CHRONIC MEDICAL PROBLEMS TP IS UP TO DATE ON TETANUS--10/2022 Allergies and Home Medications Allergies Coded Allergies: phenylephrine (Verified Allergy, Intermediate, Hives, 02/17/23) Penicillins (Unverified Allergy, Unknown, 03/23/15) shellfish derived (Verified Allergy, Unknown, 02/17/23) tomato (Verified Allergy, Unknown, 02/17/23) Patient Home Medication List Home Medication List Reviewed: Yes Naproxen (Naproxen) 500 Mg Tablet.dr, 500 MG PO BID Prescribed by: LISA MURGUIA on 03/16/23 0101 Prednisone (Prednisone) 20 Mg Tab, 20 MG PO BID Prescribed by: IBRAHIMA HERNÁNDEZ on 02/17/23 0802 Sulfamethoxazole/Trimethoprim (Bactrim Ds Tablet) 1 Each Tablet, 1 EACH PO BID Prescribed by: LISA MURGUIA on 03/16/23 0101 Review of Systems Constitutional: no symptoms reported Musculoskeletal: see HPI Skin: see HPI Psychiatric/Neurological: No Symptoms Reported Past Odqbvqa-Hmsazx-Shggnm Hx Immunizations Up To Date Tetanus Booster (TDap): Less than 5yrs (10/2022) PED Vaccines UTD: No First/Initial COVID19 Vaccinat: NA Second COVID19 Vaccination Heath: NA Third COVID19 Vaccination Date: NA Seasonal Allergies Seasonal Allergies: No Past Medical History Surgery/Hospitalization HX: PMH;ASTHMA. SURGERY;HYDROCELE, PARTIAL FINGER AMPUTATION Surgeries: Yes (hydrocele surgery; PARTIAL AMPUTATION LEFT INDEX FINGER) Amputation, Orthopedic Respiratory: Yes Asthma Currently Using CPAP: No Currently Using BIPAP: No Cardiac: No Neurological: No Reproductive Disorders: No Sexually Transmitted Disease: No Genitourinary: Yes (HYDROCELE SURGERY, history of pyelonephritis) Gastrointestinal: Yes Hemorrhoids Musculoskeletal: Yes (PARTIAL AMPUTATION LEFT INDEX FINGER 10/2022) Amputee, Chronic Back Pain Endocrine: No HEENT: No Cancer: No Psychosocial: No Integumentary: No Blood Disorders: No Adverse Reaction/Blood Tranf: No Family Medical History No Pertinent Family Hx Physical Exam Vital Signs Vital Signs - First Documented 03/16/23 00:01 Temp 36.8 Pulse 84 Resp 16 B/P (MAP) 142/94 (110) Pulse Ox 95 O2 Delivery Room Air Capillary Refill : Height, Weight, BMI Height: 5'9.00" Weight: 155lbs. oz. 70.112204xp; 22.00 BMI Method:Stated General Appearance: WD/WN, no apparent distress Feet: right foot other (RIGHT FOOT WITH MILD SWELLING AND ERYTHEMA TO PLANTAR ASPECT, DISTAL THIRD OF FOOT. THERE IS APPROX 1 CM INTACT BLISTER AT BASE OF 5TH TOE ON PLANTAR ASPECT. NO DRAINAGE. NO STREAKS. ) Neurologic/Tendon: normal sensation, normal motor functions, normal tendon functions Neurologic/Psychiatric: no motor/sensory deficits, alert, normal mood/affect, oriented x 3 Skin: normal color (PT IS BLACK), warm/dry, other ( ABOVE) Progress/Results/Core Measures Results/Orders My Orders Orders - LISA MURGUIA DO Foot, Right, 3 View (03/16/23 00:14) Rx-Trimeth/Sulfameth Ds Tab (Rx-Bactrim/ (03/16/23 00:56) Rx-Naproxen (Rx-Naprosyn) (03/16/23 00:56) Vital Signs/I&O 03/16/23 00:01 Temp 36.8 Pulse 84 Resp 16 B/P (MAP) 142/94 (110) Pulse Ox 95 O2 Delivery Room Air Progress Progress Note : Progress Note DISCUSSED ANTICIPATED COURSE, SYMPTOMATIC TREATMENT, MEDICATIONS, IMPORTANCE OF FOLLOW UP FOR FURTHER CARE AND RETURN PRECAUTIONS. PT STATES HE HAS BEEN TO [facility] [place], AND ADVISED HIM TO FOLLOW UP WITH THEM FOR FURTHER CARE. Diagnostic Imaging Comments XRAYS RIGHT FOOT--PENDING RADIOLOGIST REVIEW -NO BONY INJURY OR FOREIGN BODY Reviewed: Reviewed by Me Departure Impression Primary Impression: Cellulitis of right foot Disposition: HOME, SELF-CARE Condition: Stable Departure-Patient Inst. Decision time for Depature: 00:55 Referrals: LORE BRIZUELA,LOCAL PHYSICIAN (PCP) Primary Care Physician [facility] Patient Instructions: Cellulitis (Skin Infection), Adult ED Add. Discharge Instructions: SOAK IN WARM SOAPY WATER TWICE A DAY, COOL COMPRESSES TO AREA AT 20 MINUTE INTERVALS ELEVATE FOOT MUCH POSSIBLE FOLLOW UP WITH [facility] IN 2-3 DAYS FOR RECHECK, RETURN TO ER IF WORSE All discharge instructions reviewed with patient and/or family. Voiced understanding. Scripts Naproxen (Naproxen) 500 Mg Tablet.dr 500 MG PO BID, #20 TAB Prov: LISA MURGUIA DO 03/16/23 Sulfamethoxazole/Trimethoprim (Bactrim Ds Tablet) 1 Each Tablet 1 EACH PO BID, #20 TAB Prov: LISA MURGUIA DO 03/16/23 LISA MURGUIA DO Mar 16, 2023 00:27
[2023-03-16] MEDS ORDERED: RX-TRIMETH/SULFA. 160-800 MG (BACTRIM DS) TAB PPK#2 PO STA (00:56)
[2023-03-16] MEDS ORDERED: RX-NAPROXEN (NAPROSYN) 250 MG TAB PPK#4 PO STA (00:56)
[2023-03-16] MEDS ORDERED: SULF1TAB38 PO (01:01)
[2023-03-16] MEDS ORDERED: NAPR500T8 PO (01:01)
--- NOTE | 2023-03-16 07:13 | Diagnostic Imaging Report ---
Indication: Pain at the 5th toe. Findings: No fracture, dislocation, bony destruction, gas or opaque foreign body. Impression: Unremarkable 3 view right foot in particular the 5th toe appeared unremarkable. Dictated by: Dictated on workstation # [id number]
== END 2023-03-16 01:04 | disposition home or self-care (01) ==
LOC: EDUNIT# 23:50 → ER 23:54
DX: L03.115 Cellulitis of right lower limb (principal); Z88.2 Allergy status to sulfonamides; Z88.0 Allergy status to penicillin; Z28.310 Unvaccinated for COVID-19
CPT/HCPCS: 73630